=== PATIENT | female | born 1965 | race Caucasian/White ===

== ENCOUNTER → 2020-05-02 | Outpatient (CLI) | payer MEDICARE, OTHER ==
[2020-05-02 13:52] VITALS: BP 132/77; PULSE 99; TEMP 97.9; BMI 40.8
[2020-05-02 14:03] LABS: HCT 40.3 % (34.0-46.0); HGB 13.3 gm/dL (11.4-16.0); MCH 28.1 pg (25.0-35.0); Mean Platelet Volume 9.9; Platelet Count 222 k/uL (150-450); RBC 4.74 m/uL (3.80-5.40); RDW 13.3 % (11.5-15.5); WBC 8.9 k/uL (3.8-10.6)
--- NOTE | 2020-05-02 14:04 | P.HPBAR ---
Bariatric H&P - History & Physicial H&P Date: 05/02/20 History & Physicial: Visit/CC: initial clinic visit Patient initial contact: Initial weight: Initial weight in pounds: Height: 5 ft 6.5 in Initial BMI: Last weight: Current weight: 116.573 kg Current weight in pounds: 257.00 Current BMI: 40.8 [place] body weight (based on NIH guidelines): 60.101 kg Excess body weight loss: The patient is a 55 year-old F who presents for Bariatric Assessment. Patient is today for bariatric evaluation. Went to a previous seminar that I did. She is a sister of Daja Frost who had a previous sleeve gastrectomy. Patient with history of bipolar disorder, hypertension, COPD, GERD. Current tobacco user in the form of vaping. No history of DVT or dysphasia in the past. No prior EGD. Patient with history of laparoscopic hysterectomy and laparoscopic cholecystectomy. BMI 40.9. Patient remains interested in sleeve gastrectomy at this time. Review of Systems The patient denies any acute changes in vision or hearing, no dysphagia or odynophagia, no chest pain or shortness of breath, no dysuria or hematuria, no headache, no runny nose, no rectal bleeding or melena, no unexplained weight loss Past Medical History Past Medical History: No Reported History Additional Past Medical History / Comment(s): hardening of left ventricle History of Any Multi-Drug Resistant Organisms: None Reported Past Surgical History: Cholecystectomy, Hysterectomy Past Anesthesia/Blood Transfusion Reactions: No Reported Reaction Past Psychological History: Anxiety, Depression Smoking Status: Current every day smoker Past Alcohol Use History: None Reported Additional Past Alcohol Use History / Comment(s): patient vapes Past Drug Use History: None Reported Surgical - Exam Vital Signs Temp Pulse BP 97.9 F 99 132/77 05/02/20 13:49 05/02/20 13:49 05/02/20 13:49 Physical exam: General: Well-developed, well-nourished HEENT: Normocephalic, sclerae nonicteric Abdomen: Nontender, nondistended Extremities: No edema Neuro: Alert and oriented Bariatric Assessment & Plan (1) Morbid obesity Narrative/Plan: 55-year-old female interested in sleeve gastrectomy. Patient has familiarity with the procedure through her family members. Not interested in bypass. Patient will require nicotine cessation. Tentatively plan EGD in the near future unless supervised weight loss required. Await psychiatric and medical clearance. The risks of bleeding, infection, stenosis, stricture, leak, abscess , fistula formation, peritonitis, poor weight loss, reflux, vomiting, conversion to an open procedure, aborting sleeve gastrectomy, PR, PE, DVT, and were discussed. The patient understands and wishes to proceed. Status: Acute Bariatric Checklist Checklist: Plan: Checklist: EGD: 1. Hiatal hernia: 2. H. Pylori: HgbA1c: Vitamin D: Smoking: Current every day smoker Primary care physician referral: dr de leon Psychiatry clearance: Cardiology clearance: Sleep study: Diet journal: VTE risk score: VTE risk level: Rehab needs at discharge:
[2020-05-02 21:24] LABS: African American GFR (CKD) 84.6 (60.0-200.0); Albumin 4.7 g/dL (3.80-4.90); Albumin/Globulin Ratio 2.76 (1.60-3.17); Anion Gap 10.2 mmol/L (4.00-12.00); BUN/Creat Ratio 17.78 Ratio (12.00-20.00); Calcium 9.8 mg/dL (8.7-10.3); Carbon Dioxide 27.8 mmol/L (21.6-31.8); Folate, Serum 10.5 ng/mL; Globulin 1.7 g/dL (1.6-3.3); Potassium 4.3 mmol/L (3.5-5.5); Total Bilirubin 0.4 mg/dL (0.3-1.2); Total Protein 6.4 g/dL (6.2-8.2)
[2020-05-02 21:35] LABS: Hemoglobin A1C 6.2 % (4.0-6.0)
== END | disposition home or self-care (01) ==
LOC: BARWHC3 12:54
PROVIDERS: ATTEND Surgery
DX: E66.01 Morbid (severe) obesity due to excess calories (principal); F17.200 Nicotine dependence, unspecified, uncomplicated; Z68.41 Body mass index [BMI] 40.0-44.9, adult; K90.89 Other intestinal malabsorption; E55.9 Vitamin D deficiency, unspecified; Z90.49 Acquired absence of other specified parts of digestive tract; Z90.710 Acquired absence of both cervix and uterus
CPT/HCPCS: 84425; 80053; 82607; 82746; 83540; 85027; 82306; 83036; 93005; 36415; G0463; 99211

== ENCOUNTER 2020-08-06 10:36 | Day surgery (SDC) | payer MEDICARE, OTHER ==
[2020-08-01 14:53] VITALS: BMI 41.4
[~2020-08-06 10:36] MED LIST: LACTATED RINGERS 1,000 ML IV SCH
[2020-08-06 10:59] VITALS: RESP 16; TEMP 97
[2020-08-06] MEDS ORDERED: LIDOCAINE 1% INJ 10MG/ML (20 ML MDV) ONE (11:49)
[2020-08-06] MEDS ORDERED: PROPOFOL 10 MG/ML 20 ML VIAL IV ONE (11:49)
--- NOTE | 2020-08-06 11:52 | P.GSHP ---
History of Present Illness H&P Date: 08/06/20 Chief Complaint: gerd 55-year-old female known to our service. Here today for upper endoscopy. Patient being scheduled for elective sleeve gastrectomy. Complains of mild reflux. No DVT or dysphagia. 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, hardening of left ventricle History of Any Multi-Drug Resistant Organisms: None Reported Past Surgical History: Section, Cholecystectomy, Hysterectomy Additional Past Surgical History / Comment(s): D&C Past Anesthesia/Blood Transfusion Reactions: Previous Problems w/ Anesthesia Additional Past Anesthesia/Blood Transfusion Reaction / Comment(s): states had PONV with epidural for C-sec Smoking Status: Current every day smoker, Vaper Medications and Allergies Home Medications Medication Instructions Recorded Confirmed Type Albuterol Inhaler [Ventolin Hfa 2 puff INHALATION DIRECTED PRN 05/08/20 08/01/20 History Inhaler] DULoxetine HCL [Cymbalta] 60 mg PO DAILY 05/08/20 08/01/20 History Lurasidone HCl [Latuda] 60 mg PO HS 05/08/20 08/01/20 History Magnesium 250 mg PO DAILY 05/08/20 08/01/20 History OXcarbazepine [Trileptal] 600 mg PO BID 05/08/20 08/01/20 History Oxybutynin Chloride [Ditropan] 5 mg PO BID 05/08/20 08/01/20 History Pregabalin [Lyrica] 75 mg PO BID 05/08/20 08/01/20 History diphenhydrAMINE [Benadryl] 25 mg PO DIRECTED PRN 05/08/20 08/01/20 History lisinopriL [Zestril] 25 mg PO HS 05/08/20 08/01/20 History Fluticasone/Vilanterol [Breo 1 inhalation PO Q24HR 06/27/20 08/01/20 History Ellipta 100-25 Mcg Inhaler] buPROPion HCL [Wellbutrin SR] 150 mg PO Q12H 06/27/20 08/01/20 History Allergies Allergy/AdvReac Type Severity Reaction Status Date / Time adhesive tape Allergy "welts" Verified 08/06/20 10:56 alprazolam [From Xanax] Allergy crying Verified 08/06/20 10:56 codeine Allergy migraines Verified 08/06/20 10:56 hydromorphone [From Dilaudid] Allergy dropped b/p Verified 08/06/20 10:56 ibuprofen [From Motrin] Allergy Rash/Hives Verified 08/06/20 10:56 morphine Allergy Itching Verified 08/06/20 10:56 Surgical - Exam Vital Signs Temp Pulse Resp BP Pulse Ox 97 F L 88 16 158/74 97 08/06/20 10:58 08/06/20 10:58 08/06/20 10:58 08/06/20 10:58 08/06/20 10:58 Physical exam: General: Well-developed, well-nourished HEENT: Normocephalic, sclerae nonicteric Abdomen: Nontender, nondistended Extremities: No edema Neuro: Alert and oriented Assessment and Plan (1) GERD (gastroesophageal reflux disease) Narrative/Plan: Will proceed with upper endoscopy Current Visit: Yes Status: Acute Code(s): K21.9 - GASTRO-ESOPHAGEAL REFLUX DISEASE WITHOUT ESOPHAGITIS SNOMED Code(s): 285052600
--- NOTE | 2020-08-06 12:15 | P.PCN ---
Date of Procedure: 08/06/20 Procedure(s) Performed: Preoperative Dx: GERD, presurgical Postoperative Dx: Mild gastritis, mild distal esophagitis Procedure: EGD with Bx Anesthesia: Sedation Endoscopist: Dr. Bashir Specimens: Antrum, distal esophagus Endoscopic Procedure: The patient was on the endoscopy table in the left decubitus position. The Olympus gastroscope was inserted into the oropharynx and passed under direct visualization to the region of the third portion of the duodenum. From that point the scope was slowly withdrawn inspecting all surfaces carefully. There were no neoplastic inflammatory or polypoid lesions throughout the duodenum. The pylorus was widely patent. The stomach was carefully inspected. There was mild gastritis present. A biopsy of the antrum took place to rule out H. pylori. Retroflexion revealed a normal hiatus. The esophagus was then carefully examined. There was mild distal esophagitis with a small single linear erosion less than 1 cm in length. A biopsy of the esophagitis took place. The remainder the esophagus appear normal. The patient was then taken to the recovery room in stable condition per anesthesia guidelines. Recommendations: Begin antiacid therapy. Await biopsy results.
[2020-08-06 12:34] VITALS: BP 131/74; PULSE 74
== END 2020-08-06 13:00 | disposition home or self-care (01) ==
LOC: ORWHC2ENDO 10:36
PROVIDERS: ATTEND Surgery
DX: K29.50 Unspecified chronic gastritis without bleeding (principal); K21.0 Gastro-esophageal reflux disease with esophagitis; K22.10 Ulcer of esophagus without bleeding; R89.7 Abnormal histological findings in specimens from other organs, systems and tissues; K22.8 Other specified diseases of esophagus; J44.9 Chronic obstructive pulmonary disease, unspecified; I42.8 Other cardiomyopathies; F17.210 Nicotine dependence, cigarettes, uncomplicated; F17.290 Nicotine dependence, other tobacco product, uncomplicated; G40.A09 Absence epileptic syndrome, not intractable, without status epilepticus; G40.409 Other generalized epilepsy and epileptic syndromes, not intractable, without status epilepticus; K08.109 Complete loss of teeth, unspecified cause, unspecified class; E66.9 Obesity, unspecified; Z98.890 Other specified postprocedural states; Z90.49 Acquired absence of other specified parts of digestive tract; Z90.710 Acquired absence of both cervix and uterus; Z91.89 Other specified personal risk factors, not elsewhere classified; Z79.899 Other long term (current) drug therapy; Z79.51 Long term (current) use of inhaled steroids; Z91.09 Other allergy status, other than to drugs and biological substances; Z88.8 Allergy status to other drugs, medicaments and biological substances; Z88.5 Allergy status to narcotic agent; Z88.6 Allergy status to analgesic agent; Z68.39 Body mass index [BMI] 39.0-39.9, adult
CPT/HCPCS: 88305; 88312; 43239; J2001; J2704

== ENCOUNTER → 2020-08-27 | Outpatient (CLI) | payer MEDICARE, OTHER ==
[2020-08-27 13:59] VITALS: BP 149/84; PULSE 74; RESP 16; TEMP 98.3; BMI 39.7
--- NOTE | 2020-08-27 16:04 | P.BASOAP ---
Subjective Progress Note Date: 08/27/20 Principal diagnosis: Morbid obesity 55-year-old female known to our service. Underwent recent upper endoscopy preoperatively for upcoming sleeve gastrectomy. The patient was found to have gastritis and esophagitis. Esophageal biopsies showed ulceration with yeast. She is in the midst of a two-week Diflucan course orally. No new complaints. Patient is taking antacids daily as well. Patient still working on smoking cessation. He has her appointment with psychiatry October 01. Patient states she does need a colonoscopy at some point per her primary care physician. No bowel related complaints. Objective - Vital Signs Vital signs: Vital Signs Temp 98.3 F 08/27/20 13:56 Pulse 74 08/27/20 13:56 Resp 16 08/27/20 13:56 BP 149/84 08/27/20 13:56 Pulse Ox Intake & Output 08/26/20 08/27/20 08/27/20 18:59 06:59 18:59 Weight 113.398 kg - Exam Abdomen: Soft, nondistended, nontender Assessment/Plan (1) Morbid obesity Narrative/Plan: Patient overall doing well. Continue antiacid therapy. Finish antifungal therapy. Surgical consent form for upcoming sleeve gastrectomy reviewed in detail. All questions answered. Continue to work on smoking cessation. Likely won't be scheduled for sleeve gastrectomy until early 2020. Plan: Date: 08/27/20 Initial Weight: 113.398 kg Initial BMI: 39.7 Current Weight: 113.398 kg Current BMI: 39.7 Type of Surgery: Total Volume in Band: Previous Volume: Volume Removed: Volume Added: Band Size:
== END | disposition home or self-care (01) ==
LOC: BARWHC3 12:00
PROVIDERS: ATTEND Surgery
DX: E66.01 Morbid (severe) obesity due to excess calories (principal); Z68.39 Body mass index [BMI] 39.0-39.9, adult
CPT/HCPCS: 99211

== ENCOUNTER → 2020-11-25 | Outpatient (CLI) | payer MEDICARE, OTHER ==
--- NOTE | 2020-11-26 15:00 | MM ---
Reason for exam: screening (asymptomatic). Last mammogram was performed 7 years and 6 months ago. History: Family history of breast cancer in cousin. Physical Findings: A clinical breast exam by your physician is recommended on an annual basis and results should be correlated with mammographic findings. MG 3D Screening Mammo W/Cad Bilateral CC and MLO view(s) were taken. There are scattered fibroglandular densities. There is no discrete abnormality. ASSESSMENT: Negative, BI-RAD 1 RECOMMENDATION: Routine screening mammogram of both breasts in 1 year.
== END | disposition home or self-care (01) ==
LOC: RADMAMWWP 09:48
PROVIDERS: ATTEND Family Medicine
DX: Z12.31 Encounter for screening mammogram for malignant neoplasm of breast (principal)
CPT/HCPCS: 77063; 77067

== ENCOUNTER 2020-12-17 09:10 | Day surgery (SDC) | payer MEDICARE, OTHER ==
[2020-12-12 14:22] VITALS: BMI 40.1
[~2020-12-17 09:10] MED LIST changes: +LIDOCAINE 1% (10MG/ML) FOR IV START INTRADERMA PRN
[2020-12-17] MEDS ORDERED: LACTATED RINGERS 1,000 ML IV ONE ×2 (09:40)
[2020-12-17 09:58] VITALS: RESP 16; TEMP 97
[2020-12-17] MEDS ORDERED: PROPOFOL 10 MG/ML 20 ML VIAL IV ONE (10:32)
--- NOTE | 2020-12-17 10:37 | P.GSHP ---
History of Present Illness H&P Date: 12/17/20 Chief Complaint: Screening 85-year-old female with history of colon polyps here today for screening colonoscopy. Last colonoscopy 6-7 years ago. Family history of colon cancer in grandfather. No bowel complaints. 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, hardening of left ventricle History of Any Multi-Drug Resistant Organisms: None Reported Past Surgical History: Section, Cholecystectomy, Hysterectomy Additional Past Surgical History / Comment(s): D&C Past Anesthesia/Blood Transfusion Reactions: Previous Problems w/ Anesthesia, Postoperative Nausea & Vomiting (PONV) Additional Past Anesthesia/Blood Transfusion Reaction / Comment(s): states had PONV with epidural for C-sec Smoking Status: Current every day smoker Medications and Allergies Home Medications Medication Instructions Recorded Confirmed Type Albuterol Inhaler [Ventolin Hfa 2 puff INHALATION DIRECTED PRN 05/08/20 12/17/20 History Inhaler] DULoxetine HCL [Cymbalta] 60 mg PO DAILY 05/08/20 12/17/20 History Lurasidone HCl [Latuda] 60 mg PO HS 05/08/20 12/17/20 History Magnesium 250 mg PO DAILY 05/08/20 12/17/20 History OXcarbazepine [Trileptal] 600 mg PO BID 05/08/20 12/17/20 History Oxybutynin Chloride [Ditropan] 5 mg PO BID 05/08/20 12/17/20 History diphenhydrAMINE [Benadryl] 25 mg PO DIRECTED PRN 05/08/20 12/17/20 History lisinopriL [Zestril] 25 mg PO HS 05/08/20 12/17/20 History Fluticasone/Vilanterol [Breo 1 inhalation PO Q24HR 06/27/20 12/17/20 History Ellipta 100-25 Mcg Inhaler] buPROPion HCL [Wellbutrin SR] 150 mg PO Q12H 06/27/20 12/17/20 History Omeprazole [PriLOSEC] 20 mg PO AC-BRKFST #90 cap 08/06/20 12/17/20 Rx Allergies Allergy/AdvReac Type Severity Reaction Status Date / Time adhesive tape Allergy "welts" Verified 12/17/20 09:47 alprazolam [From Xanax] Allergy crying Verified 12/17/20 09:47 codeine Allergy migraines Verified 12/17/20 09:47 hydromorphone [From Dilaudid] Allergy dropped b/p Verified 12/17/20 09:47 ibuprofen [From Motrin] Allergy Rash/Hives Verified 12/17/20 09:47 morphine Allergy Itching Verified 12/17/20 09:47 Surgical - Exam Vital Signs Temp Pulse Resp BP Pulse Ox 97.0 F L 89 16 133/69 95 12/17/20 09:45 12/17/20 09:45 12/17/20 09:45 12/17/20 09:45 12/17/20 09:45 Physical exam: General: Well-developed, well-nourished HEENT: Normocephalic, sclerae nonicteric Abdomen: Nontender, nondistended Extremities: No edema Neuro: Alert and oriented Assessment and Plan (1) Colon cancer screening Narrative/Plan: Proceed with colonoscopy. Current Visit: Yes Status: Acute Code(s): Z12.11 - ENCOUNTER FOR SCREENING FOR MALIGNANT NEOPLASM OF COLON SNOMED Code(s): 604499118
--- NOTE | 2020-12-17 10:59 | P.PCN ---
Date of Procedure: 12/17/20 Procedure(s) Performed: PREOPERATIVE DIAGNOSIS: Colon cancer screening POSTOPERATIVE DIAGNOSIS: Hepatic flexure polyp, poor prep PROCEDURE: Colonoscopy with snare polypectomy ANESTHESIA: MAC SURGEON: Shahriar Bashir M.D. SPECIMENS: Polyp ENDOSCOPIC PROCEDURE: The patient was placed on the endoscopy table in the left decubitus position. The Olympus colonoscope was inserted into the anus and passed under direct visualization to the base of the cecum. The appendiceal orifice was visualized. From that point the scope was slowly withdrawn inspecting all surfaces carefully. There were no neoplastic inflammatory or polypoid lesions throughout the cecum and ascending colon. At the hepatic flexure a 1 cm to 1.5 cm sessile polyp was removed as one piece. It was too large to retrieve through the scope so we cut the polyp into several pieces with the snare in order to retrieve. The remainder of the transverse descending sigmoid and rectum appeared normal. It should be noted the patient's prep was suboptimal. There was no visible diverticulosis. Digital rectal examination was normal. The patient was taken to the recovery room in stable condition per anesthesia guidelines. RECOMMENDATIONS: Await biopsy results. Will recommend follow-up colonoscopy one year.
[2020-12-17 11:40] VITALS: BP 124/74; PULSE 72
== END 2020-12-17 11:43 | disposition home or self-care (01) ==
LOC: ORWHC2ENDO 09:10
PROVIDERS: ATTEND Surgery
DX: Z12.11 Encounter for screening for malignant neoplasm of colon (principal); D12.3 Benign neoplasm of transverse colon; Z80.0 Family history of malignant neoplasm of digestive organs; J44.9 Chronic obstructive pulmonary disease, unspecified; G40.909 Epilepsy, unspecified, not intractable, without status epilepticus; F17.200 Nicotine dependence, unspecified, uncomplicated; Z98.891 History of uterine scar from previous surgery; Z90.49 Acquired absence of other specified parts of digestive tract; Z90.710 Acquired absence of both cervix and uterus; Z79.51 Long term (current) use of inhaled steroids; Z79.899 Other long term (current) drug therapy; Z88.5 Allergy status to narcotic agent; Z88.6 Allergy status to analgesic agent; Z91.048 Other nonmedicinal substance allergy status
CPT/HCPCS: 88305; 45385; J2704

== ENCOUNTER → 2020-12-30 | Outpatient (CLI) | payer MEDICARE, OTHER ==
[2020-12-30 14:30] VITALS: BMI 40.4
== END | disposition home or self-care (01) ==
LOC: BARWHC3 08:52
PROVIDERS: ATTEND Surgery
DX: E66.01 Morbid (severe) obesity due to excess calories (principal); Z71.3 Dietary counseling and surveillance; Z68.41 Body mass index [BMI] 40.0-44.9, adult
CPT/HCPCS: 97804

== ENCOUNTER → 2021-01-28 | Outpatient (CLI) | payer MEDICARE, OTHER ==
[2021-01-28 13:07] VITALS: BP 135/82; PULSE 84; RESP 16; TEMP 98.3; BMI 39.2
--- NOTE | 2021-01-28 15:05 | P.BASOAP ---
Subjective Progress Note Date: 01/28/21 Principal diagnosis: Morbid obesity Patient returns for evaluation. Last seen in November. Underwent colonoscopy at that time. Last EGD July of last year. Esophagitis with [place] was seen. She was treated with antifungals at that time. Apparently she missed one of her months of supervised weight loss and had to restart. She will not be ready for surgery till June or later. Still smoking 5-6 cigarettes per day. Objective - Vital Signs Vital signs: Vital Signs Temp 98.3 F 01/28/21 13:03 Pulse 84 01/28/21 13:03 Resp 16 01/28/21 13:03 BP 135/82 01/28/21 13:03 Pulse Ox Intake & Output 01/27/21 01/28/21 01/28/21 18:59 06:59 18:59 Weight 112.037 kg - Exam Abdomen: Soft, nontender, nondistended Assessment/Plan (1) Morbid obesity Narrative/Plan: 55-year-old female with obesity. Continue preoperative weight loss regimen. Continue attempts at smoking cessation. Follow-up this fall. Plan: Date: 01/28/21 Initial Weight: 113.398 kg Initial BMI: 39.7 Current Weight: 112.037 kg Current BMI: 39.2 Type of Surgery: Total Volume in Band: Previous Volume: Volume Removed: Volume Added: Band Size:
== END ==
LOC: BARWHC3 12:34
PROVIDERS: ATTEND Surgery
DX: E66.01 Morbid (severe) obesity due to excess calories (principal); Z68.39 Body mass index [BMI] 39.0-39.9, adult; F17.210 Nicotine dependence, cigarettes, uncomplicated
CPT/HCPCS: 99211

== ENCOUNTER → 2021-07-15 | Outpatient (CLI) | payer MEDICARE, OTHER ==
[2021-07-15 13:18] VITALS: BP 132/84; PULSE 80; RESP 18; TEMP 98.4; BMI 38.8
--- NOTE | 2021-07-15 13:54 | P.BASOAP ---
Subjective Progress Note Date: 07/15/21 Principal diagnosis: Morbid obesity Patient returns for recheck. Last seen in January of this year. Patient remains interested in proceeding with sleeve gastrectomy. Unfortunately she is still smoking at this time. Recently started Adipex without significant weight loss. She has completed her supervised weight loss visits. Recently found a small nodule in the submental region. Nontender. Has an appointment with ENT. Objective - Vital Signs Vital signs: Vital Signs Temp 98.4 F 07/15/21 13:14 Pulse 80 07/15/21 13:14 Resp 18 07/15/21 13:14 BP 132/84 07/15/21 13:14 Pulse Ox Intake & Output 07/14/21 07/15/21 07/15/21 18:59 06:59 18:59 Weight 110.767 kg - Exam Abdomen: Soft, nontender, nondistended Submental swelling 2 x 1.5 cm Assessment/Plan (1) Morbid obesity Narrative/Plan: Patient continues to smoke. Says she is continuing to try to quit. We'll have patient return in 2-3 months for recheck. We'll not schedule sleep gastrectomy until smoking cessation confirmed. Await ENT evaluation. Plan: Date: 07/15/21 Initial Weight: 113.398 kg Initial BMI: 39.7 Current Weight: 110.767 kg Current BMI: 38.8 Type of Surgery: Total Volume in Band: Previous Volume: Volume Removed: Volume Added: Band Size:
== END ==
LOC: BARWHC3 12:48
PROVIDERS: ATTEND Surgery
DX: E66.01 Morbid (severe) obesity due to excess calories (principal); F17.200 Nicotine dependence, unspecified, uncomplicated; Z68.39 Body mass index [BMI] 39.0-39.9, adult; Z88.5 Allergy status to narcotic agent; Z88.6 Allergy status to analgesic agent; Z91.048 Other nonmedicinal substance allergy status; Z88.8 Allergy status to other drugs, medicaments and biological substances
CPT/HCPCS: 99211

== ENCOUNTER → 2021-09-30 | Outpatient (CLI) | payer MEDICARE, OTHER ==
--- NOTE | 2021-09-30 14:08 | P.BASOAP ---
Subjective Progress Note Date: 09/30/21 Principal diagnosis: Morbid obesity Patient returns for evaluation. She says she have the nodule excised from beneath her chin. She states this was benign. Otherwise doing well. No abdominal pain. Says she still is smoking. Says she will not stop smoking until she has a better idea when surgery will be scheduled. Objective - Exam Abdomen: Soft, nontender, nondistended Chin with recent 3 cm incision with sutures present Assessment/Plan (1) Morbid obesity Narrative/Plan: Patient doing well at this time. Thankfully recent biopsy from ENT was negative. Patient informed that we will not schedule surgery until we have a negative nicotine test. She says she will quit today. Tentatively plan on the patient return in 4-6 weeks to have urine sampling for nicotine. Plan: Date: Initial Weight: 113.398 kg Initial BMI: Current Weight: Current BMI: Type of Surgery: Total Volume in Band: Previous Volume: Volume Removed: Volume Added: Band Size:
[2021-09-30 14:36] VITALS: BP 139/76; PULSE 112; TEMP 98; BMI 38.1
== END ==
LOC: BARWHC3 13:38
PROVIDERS: ATTEND Surgery
DX: E66.01 Morbid (severe) obesity due to excess calories (principal); F17.200 Nicotine dependence, unspecified, uncomplicated; Z68.38 Body mass index [BMI] 38.0-38.9, adult; Z91.048 Other nonmedicinal substance allergy status; Z88.5 Allergy status to narcotic agent; Z88.6 Allergy status to analgesic agent
CPT/HCPCS: 99211

== ENCOUNTER → 2022-05-20 | Outpatient (CLI) | payer MEDICARE, OTHER ==
--- NOTE | 2022-05-20 16:41 | P.SLEEP ---
History of Present Illness DATE: 05/20/2022 52 CONSULTATION/NEW PATIENT EVALUATION HISTORY OF PRESENT ILLNESS/SLEEP-WAKE EVALUATION: 57 year old lady had been evaluated in the sleep center for possible obstructive sleep apnea hypopnea syndrome. SLEEP SCHEDULE: Usually sleep schedule from midnight until 10 AM[]. FALLING ASLEEP: Patient has problems with the falling asleep, this TV set in bedroom DURING SLEEP: Usually patient sleeps on the side position with a loud snoring and multiple awakenings from sleep up to 3 times with episodes of nocturia. No history of hypnogogical hallucinations, sleep paralysis, or cataplexy. DURING THE DAY/WAKE STATE: Patient has problems with the pain could tension, episodes of depression and anxiety falling asleep during the day. [place] sleepiness scale is 16, which is significantly above normal indicates sleepiness. Patient may take nap around 1- 2 PM. MEDICATIONS: Trileptal, oxybutynin, lisinopril, latuda, Cymbalta, vitamin D. PAST MEDICAL HISTORY: Sinuses problems, headaches, acid reflux, major depression, history of psychosis, restless leg symptoms. PAST SURGICAL HISTORY: Total hysterectomy, cholecystectomy, D&C. SOCIAL HISTORY: Positive for smoking for 40 years 1 pack a day quit 3 months ago, alcohol consumption none. FAMILY HISTORY: Stroke, epilepsy, hyperlipidemia. REVIEW OF SYSTEMS: Loud snoring, multiple awakenings from sleep. No fevers. No double vision. No recent chest pain. No shortness of breath. No abdominal pain. No bleeding episodes. No blood in urine. No seizure episodes. PHYSICAL EXAMINATION: GENERAL: A pleasant patient without any distress. VITAL SIGNS: BP 141/80 , HR XT 7 , RR 20 , weight 251 pounds , height 5 foot 6 inches body mass index 40.3 . HEENT: PERRLA, EOMI. Evaluation of oropharynx showed tongue protrudes midline, low position of soft palate Mallampati 3, whide pillrs.. NECK: Supple. No JVD. Thyroid is not palpable. LUNGS: Clear to percussion and to auscultation. Good air exchange. No wheezing or rhonchi. HEART: S1, S2 regular. No murmurs, gallops or rubs. ABDOMEN: Soft and nontender. Bowel sounds are present. No organomegaly appr eciated. EXTREMITIES: No clubbing or cyanosis. ADMISSIONS SPECIALIST: Awake, alert, and oriented x3. Cranial nerves 2 to 7 intact. There is no fasciculation or atrophy noted. No focal deficits observed. ASSESSMENT: 1. Loud snoring, multiple awakenings from sleep, small oropharyngeal air space. Sleepiness [place] sleepiness scale 16. White neck 17 inches in circumference. Obstructive sleep apnea hypopnea syndrome. 2. History of sinusitis. 3 headaches. 4. Acid reflux. 5 history of major depression and psychosis. 6. Restless leg symptoms. 7. Status post total hysterectomy. 8. Status post cholecystectomy. 9. Status post D and C. PLAN: 1. Polysomnography for evaluation of patient's breathing during sleep. 2. CPAP/BiPAP titration if sleep study confirms obstructive sleep apnea- hypopnea syndrome. 3. Preferable position during sleep on the side. 4. No driving if patient feels any sleepiness. Patient is aware of civil and criminal liability for unsafe driving. 5. Sleep hygiene with regular sleep time for at least 7.5-8 hours. 6. Watching weight. Sincerely, Yeyo Ken MD, PhD, FAASM. 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, hardening of left ventricle History of Any Multi-Drug Resistant Organisms: None Reported Past Surgical History: Section, Cholecystectomy, Hysterectomy Additional Past Surgical History / Comment(s): D&C Past Anesthesia/Blood Transfusion Reactions: Previous Problems w/ Anesthesia Additional Past Anesthesia/Blood Transfusion Reaction / Comment(s): states had PONV with epidural for C-sec Past Psychological History: Anxiety, Depression Smoking Status: Current every day smoker, Vaper Past Alcohol Use History: None Reported Additional Past Alcohol Use History / Comment(s): currently smoking 5 cigarettes daily, down from 1 to 1 and 1/2ppd. started age 15, also vaping Past Drug Use History: None Reported Medications and Allergies Home Medications Medication Instructions Recorded Confirmed Type Albuterol Inhaler [Ventolin Hfa 2 puff INHALATION DIRECTED PRN 05/08/20 02/25/22 History Inhaler] DULoxetine HCL [Cymbalta] 60 mg PO DAILY 05/08/20 02/25/22 History Lurasidone HCl [Latuda] 60 mg PO HS 05/08/20 02/25/22 History Magnesium 250 mg PO DAILY 05/08/20 02/25/22 History OXcarbazepine [Trileptal] 600 mg PO BID 05/08/20 02/25/22 History Oxybutynin Chloride [Ditropan] 5 mg PO BID 05/08/20 02/25/22 History diphenhydrAMINE [Benadryl] 25 mg PO DIRECTED PRN 05/08/20 02/25/22 History lisinopriL [Zestril] 25 mg PO HS 05/08/20 02/25/22 History Fluticasone/Vilanterol [Breo 1 inhalation PO Q24HR 06/27/20 02/25/22 History Ellipta 100-25 Mcg Inhaler] buPROPion HCL [Wellbutrin SR] 150 mg PO Q12H 06/27/20 02/25/22 History Omeprazole [PriLOSEC] 20 mg PO AC-BRKFST #90 cap 08/06/20 02/25/22 Rx Phentermine HCl [Adipex-P] 37.5 mg PO BID 07/15/21 02/25/22 History Sulfamethox-Tmp 800-160Mg [Bactrim 1 tab PO Q12HR 07/15/21 02/25/22 History DS 800-160 mg] Allergies Allergy/AdvReac Type Severity Reaction Status Date / Time adhesive tape Allergy "welts" Verified 07/15/21 13:12 alprazolam [From Xanax] Allergy crying Verified 07/15/21 13:12 codeine Allergy migraines Verified 07/15/21 13:12 hydromorphone [From Dilaudid] Allergy dropped b/p Verified 07/15/21 13:12 ibuprofen [From Motrin] Allergy Rash/Hives Verified 07/15/21 13:12 morphine Allergy Itching Verified 07/15/21 13:12 Sleep Note - Sleep Note Sleep Note: Temperature: Pulse Rate: Respiratory Rate: Blood Pressure: SpO2: Height: Weight: BMI: Neck Circumference:
== END ==
LOC: SLEEP 15:18
PROVIDERS: ATTEND Internal Medicine
DX: G47.33 Obstructive sleep apnea (adult) (pediatric) (principal); K21.9 Gastro-esophageal reflux disease without esophagitis; G25.81 Restless legs syndrome; Z90.710 Acquired absence of both cervix and uterus; F32.A Depression, unspecified; Z90.49 Acquired absence of other specified parts of digestive tract; Z87.59 Personal history of other complications of pregnancy, childbirth and the puerperium; Z87.09 Personal history of other diseases of the respiratory system; Z86.59 Personal history of other mental and behavioral disorders; Z79.899 Other long term (current) drug therapy; Z91.048 Other nonmedicinal substance allergy status; Z88.5 Allergy status to narcotic agent; Z88.6 Allergy status to analgesic agent; Z88.8 Allergy status to other drugs, medicaments and biological substances; F17.200 Nicotine dependence, unspecified, uncomplicated
CPT/HCPCS: 99211

== ENCOUNTER → 2022-07-20 | Outpatient (CLI) | payer MEDICARE, OTHER ==
[2022-07-20 10:45] VITALS: BMI 40.8
== END ==
LOC: BARWHC3 08:32
PROVIDERS: ATTEND Surgery
DX: E66.01 Morbid (severe) obesity due to excess calories (principal); Z71.3 Dietary counseling and surveillance; Z68.41 Body mass index [BMI] 40.0-44.9, adult; Z91.048 Other nonmedicinal substance allergy status; Z88.5 Allergy status to narcotic agent; Z88.6 Allergy status to analgesic agent; F17.200 Nicotine dependence, unspecified, uncomplicated
CPT/HCPCS: 97804

== ENCOUNTER → 2022-10-13 | Outpatient (CLI) | payer MEDICARE, OTHER ==
[2022-10-13 18:29] LABS: Basophils # (A) 0.06 X 10*3/uL (0.00-0.10); Basophils % (A) 0.8 %; Eosinophils # (A) 0.21 X 10*3/uL (0.04-0.35); Eosinophils % (A) 2.8 %; HCT 41.7 % (37.2-46.3); HGB 13.7 g/dL (12.0-15.0); Immature Grans, Automated 0.5 %; Lymphocytes # (A) 1.61 X 10*3/uL (0.90-5.00); Lymphocytes % (A) 21.4 %; MCH 27.4 pg (27.0-32.0); MCHC 32.9 g/dL (32.0-37.0); MCV 83.4 fL (80.0-97.0); Mean Platelet Volume 12.2 fL (9.5-12.2); Monocytes # (A) 0.54 X 10*3/uL (0.20-1.00); Monocytes % (A) 7.2 %; NRBC Per 100 WBC 0 /100 WBCS (0.0-0.0); Neutrophils # (A) 5.06 X 10*3/uL (1.80-7.70); Neutrophils % (A) 67.3 %; Platelet Count 227 X 10*3/uL (140-440); RDW 13.9 % (11.5-14.5); WBC 7.52 X 10*3/uL (4.50-10.00)
[2022-10-13 19:47] LABS: African American GFR (CKD) 96.2 (60.0-200.0); Albumin 4.7 g/dL (3.8-4.9); Albumin/Globulin Ratio 2.61 (1.60-3.17); Anion Gap 15.4 mmol/L (10.00-18.00); BUN/Creat Ratio 18.5 Ratio (12.00-20.00); Blood Urea Nitrogen 14.8 mg/dL (9.0-27.0); Calcium 10.2 mg/dL (8.7-10.3); Carbon Dioxide 22.6 mmol/L (20.0-27.5); Globulin 1.8 g/dL (1.6-3.3); Potassium 4.5 mmol/L (3.5-5.5); Total Bilirubin 0.4 mg/dL (0.30-1.20); Total Protein 6.5 g/dL (6.2-8.2)
== END | disposition home or self-care (01) ==
LOC: LABPAT 12:59
PROVIDERS: ATTEND Surgery
DX: Z01.812 Encounter for preprocedural laboratory examination (principal)
CPT/HCPCS: 80053; 85025; 93005

== ENCOUNTER → 2022-10-14 | Outpatient (CLI) | payer MEDICARE, OTHER | END | disposition home or self-care (01) | LOC: LABPAT 10:40 | PROVIDERS: ATTEND Surgery | DX: Z01.812 Encounter for preprocedural laboratory examination (principal) | CPT/HCPCS: 93005 ==

== ENCOUNTER 2022-10-23 07:30 | Inpatient (IN) | payer MEDICARE, OTHER ==
[~2022-10-23 07:30] MED LIST changes: +ACETAMINOPHEN TAB 500 MG TAB PO PRN; +ENOXAPARIN 40 MG/0.4 ML SYRINGE SQ PRN; -LACTATED RINGERS 1,000 ML IV SCH; -LIDOCAINE 1% (10MG/ML) FOR IV START INTRADERMA PRN; +ONDANSETRON 4 MG/2 ML VIAL IVP PRN; +fentaNYL (PF) 50 MCG/ML 2 ML AMP IVP PRN
--- NOTE | 2022-10-23 09:54 | P.GSHP ---
History of Present Illness H&P Date: 10/23/22 Chief Complaint: Morbid obesity 57-year-old female here today for elective laparoscopic sleeve gastrectomy. Patient has been followed in the bariatric clinic since 2019. Patient has family members of had a previous sleeve gastrectomy. Patient with history of hypertension, COPD, GERD, possible sleep apnea. Patient was a previous smoker. She did stop during this preoperative evaluation. Previous EGD showed mild gastritis and mild distal esophagitis. No history of DVT or dysphagia. 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, hardening of left ventricle, having retest for sleep apnea soon History of Any Multi-Drug Resistant Organisms: None Reported Past Surgical History: Section, Cholecystectomy, Hysterectomy Additional Past Surgical History / Comment(s): D&C Past Anesthesia/Blood Transfusion Reactions: Previous Problems w/ Anesthesia, Postoperative Nausea & Vomiting (PONV) Additional Past Anesthesia/Blood Transfusion Reaction / Comment(s): states had PONV with epidural for C-sec Smoking Status: Current every day smoker, Former smoker - Past Family History Father Family Medical History: AFIB, Diabetes Mellitus Mother Family Medical History: CVA/TIA, Diabetes Mellitus, Renal Disease Additional Family Medical History / Comment(s): dialysis Medications and Allergies Home Medications Medication Instructions Recorded Confirmed Type Albuterol Inhaler [Ventolin Hfa 2 puff INHALATION DIRECTED PRN 05/08/20 10/19/22 History Inhaler] DULoxetine HCL [Cymbalta] 60 mg PO DAILY 05/08/20 10/19/22 History Lurasidone HCl [Latuda] 60 mg PO HS 05/08/20 10/19/22 History OXcarbazepine [Trileptal] 600 mg PO BID 05/08/20 10/19/22 History Oxybutynin Chloride [Ditropan] 5 mg PO TID 05/08/20 10/19/22 History diphenhydrAMINE [Benadryl] 25 mg PO DIRECTED PRN 05/08/20 10/19/22 History lisinopriL [Zestril] 25 mg PO HS 05/08/20 10/19/22 History Fluticasone/Vilanterol [Breo 1 inhalation PO Q24HR 06/27/20 10/19/22 History Ellipta 100-25 Mcg Inhaler] buPROPion HCL [Wellbutrin SR] 150 mg PO BID 06/27/20 10/19/22 History Omeprazole [PriLOSEC] 20 mg PO AC-BRKFST #90 cap 08/06/20 10/19/22 Rx Aspirin [Adult Low Dose Aspirin EC] 81 mg PO DAILY 10/19/22 10/19/22 History Ergocalciferol [Vitamin D2 (1250 1 tab PO WEEKLY 10/19/22 10/19/22 History Mcg = 12463 Iu)] Famotidine 40 mg PO DAILY 10/19/22 10/19/22 History Meclizine [Antivert] 25 mg PO BID 10/19/22 10/19/22 History Allergies Allergy/AdvReac Type Severity Reaction Status Date / Time adhesive tape Allergy "welts" Verified 10/19/22 09:28 alprazolam [From Xanax] Allergy crying Verified 10/19/22 09:28 codeine Allergy migraines Verified 10/19/22 09:28 hydromorphone [From Dilaudid] Allergy dropped b/p Verified 10/19/22 09:28 ibuprofen [From Motrin] Allergy Rash/Hives Verified 10/19/22 09:28 morphine Allergy Itching Verified 10/19/22 09:28 Surgical - Exam Physical exam: General: Well-developed, well-nourished HEENT: Normocephalic, sclerae nonicteric Abdomen: Nontender, nondistended Extremities: No edema Neuro: Alert and oriented Assessment and Plan (1) Morbid obesity Narrative/Plan: 57-year-old female with morbid obesity. We'll proceed with laparoscopic da Radha assisted sleeve gastrectomy. The risks of bleeding, infection, stenosis, stricture, leak, abscess, fistula formation, peritonitis, poor weight loss, reflux, vomiting, conversion to an open procedure, aborting sleeve gastrectomy, CA, PE, DVT, and were discussed. The patient understands and wishes to proceed. Status: Acute Code(s): E66.01 - MORBID (SEVERE) OBESITY DUE TO EXCESS CALORIES SNOMED Code(s): 315508481
[2022-10-23] MEDS ORDERED: CHLORHEXIDINE GLUCONATE 15 ML CUP MUCOUS MEM ONE ×2 (12:11→12:21)
[2022-10-23 12:44] LABS: Glucose,Whole Blood 101 mg/dL (70-110)
[2022-10-23] MEDS: LACTATED RINGERS 1,000 ML IV SCH (13:01)
[2022-10-23] MEDS ORDERED: GLYCOPYRROLATE 0.2 MG/ML 2 ML VIAL ONE (13:41)
[2022-10-23] MEDS ORDERED: SUCCINYLCHOLINE CHLORIDE 200 MG/10 ML VIAL IV ONE (13:41)
[2022-10-23] MEDS ORDERED: PROPOFOL 10 MG/ML 20 ML VIAL IV ONE (13:41)
[2022-10-23] MEDS ORDERED: NEOSTIGMINE 1 MG/ML 10 ML VIAL ONE (13:41)
[2022-10-23] MEDS ORDERED: LIDOCAINE 2% INJ 20 MG/ML (2 ML VIAL) ONE (13:41)
[2022-10-23] MEDS ORDERED: MIDAZOLAM 2 MG/2 ML VIAL ONE (13:41)
[2022-10-23] MEDS ORDERED: ROCURONIUM 10 MG/ML (5 ML VIAL) IV ONE (13:41)
[2022-10-23] MEDS ORDERED: METHYLENE BLUE 10 MG/ML (10 ML VIAL) ONE (13:41)
[2022-10-23] MEDS ORDERED: fentaNYL (PF) 50 MCG/ML 2 ML AMP ONE (13:41)
[2022-10-23] MEDS ORDERED: BUPIVACAIN-EPI 0.25%-1:200,000 30 ML VIAL SQ ONE (14:06)
[2022-10-23] MEDS ORDERED: LACTATED RINGERS 1,000 ML IV ONE ×2 (15:15→15:24)
[2022-10-23] MEDS ORDERED: diphenhydrAMINE 50 MG/ML 1 ML VIAL IVP PRN (15:55)
[2022-10-23] MEDS ORDERED: SIMETHICONE 40 MG/0.6 ML DROPS 2,000 MG/30 ML BOTTLE PO PRN (15:55)
[2022-10-23] MEDS ORDERED: HYOSCYAMINE ORAL DROPS 1.875 MG/15 ML BOTTLE PO PRN (15:55)
[2022-10-23] MEDS ORDERED: ONDANSETRON 4 MG/2 ML VIAL IVP PRN (15:55)
[2022-10-23] MEDS ORDERED: NALOXONE 0.4 MG/ML 1 ML VIAL IV PRN ×2 (15:55→22:27)
--- NOTE | 2022-10-23 16:01 | P.OP ---
Date of Procedure: 10/23/22 Procedure(s) Performed: PREOPERATIVE DIAGNOSIS: Morbid obesity, hypertension POSTOPERATIVE DIAGNOSIS: Same PROCEDURE: Da Radha assisted laparoscopic sleeve gastrectomy SURGEON: Mckay EBL: Minimal ANESTHESIA: General COMPLICATIONS: None OPERATIVE PROCEDURE: Patient was placed in the operating table in the supine position. The patient was then placed under general anesthesia at that time. The abdomen was prepped and draped in the usual sterile fashion. A 5 mm optical trocar was placed in the left upper quadrant 20 cm inferior to the xiphoid process. Insufflation took place up to 15 mmHg. No adhesions were seen. A 5 mm subxiphoid incision was made and the medium Julien retractor was used to e levate the left lobe of liver anteriorly. This was held in place using the fixed arm retractor. An additional 12 mm trocar was placed in the right paramedian location and 2 additional 8 mm trochars were placed in the left upper quadrant one medial and one lateral to the initially placed optical trocar. All of these trochars were placed along the same plane. The initial 5 was then switched to an 8 mm trocar. The robot was then docked appropriately. The 8 mm camera was placed in the left paramedian trocar site down viewing. A fenestrated bipolar was placed in arm 1, arm 3 had the vessel sealer, arm 4 had the small grasper retractor. The patient's liver was somewhat enlarged. During the procedure at times we had to manually hold up on our liver retractor in order to see the diaphragm. The hiatus was inspected and there was no visible hiatal hernia. At that point I moved to the distal aspect of the greater curvature the stomach. The short gastric vasculature were divided using the vessel sealer. This dissection took place distally until we were 4 cm from the pylorus. The posterior adhesions were divided as well. The dissection then took place proximally along the stomach until the posterior short gastrics were divided and the fundus of the stomach was fully mobilized. Once the stomach was fully mobilized the blunt tipped 40-Khmer bougie dilator was advanced into the stomach and advanced all the way to the prepyloric location. The patient's stomach by palpation seemed to be of average thickness. Sequential firing of the stapler took place. 2 green loads, 4 blue loads, and a single white load were utilized. No buttressing was used. The stomach was then placed in the right upper quadrant after it was fully excised. The oral gastric tube was reinserted. The stomach was insufflated with approximately 100 mL of methylene blue. The patient was noted to have some oozing at a few sites along the sleeve. These were all controlled using both bipolar cautery and the 5 mm clipper. No further bleeding was seen. Tisseel fibrin glue was then used along the length of the staple line. The robot was then undocked. The da Radha laparoscope was used and the stomach was removed from the 12 mm trocar site without difficulty. The fascia at the 12mm site was closed using [id number] 0 Vicryl sutures with the laparoscopic suture passer and Sumit Winsome technique. The insufflation was evacuated. The skin at all 5 incisions were closed using 4-0 Monocryl sutures. Skin glue was then applied. DISPOSITION: Stable to recovery room
[2022-10-23] MEDS: ACETAMINOPHEN IV (For NPO) 1,000 MG in EMPTY BAG 1 BAG IVPB SCH ×2 (17:13→23:37)
[2022-10-23] MEDS: PANTOPRAZOLE 40 MG/10 ML VIAL IV SCH (17:13)
[2022-10-23] MEDS: ALBUTEROL NEBULIZED 2.5 MG/3 ML INHALATION SCH ×2 (20:35→20:41)
[2022-10-23] MEDS: FAMOTIDINE 20 MG TAB PO SCH (20:59)
[2022-10-23] MEDS: 0.9% NACL WITH KCL 20 MEQ/L 1,000 ML IV SCH (21:00)
[2022-10-23] MEDS ORDERED: fentaNYL PCA 500 MCG/50 ML BAG IV PRN (22:27)
[2022-10-23] MEDS: GABAPENTIN 300 MG CAP PO SCH (22:56)
[2022-10-23] MEDS: SIMETHICONE 40 MG/0.6 ML DROPS 2,000 MG/30 ML BOTTLE PO SCH (23:35)
[2022-10-24] MEDS: 0.9% NACL WITH KCL 20 MEQ/L 1,000 ML IV SCH ×4 (00:34→20:45)
[2022-10-24] MEDS: ENOXAPARIN 40 MG/0.4 ML SYRINGE SQ SCH ×3 (02:38→22:50)
[2022-10-24] MEDS: ACETAMINOPHEN IV (For NPO) 1,000 MG in EMPTY BAG 1 BAG IVPB SCH ×3 (05:27→17:47)
[2022-10-24] MEDS: LACTATED RINGERS 1,000 ML IV SCH (05:28)
[2022-10-24] MEDS: ALBUTEROL NEBULIZED 2.5 MG/3 ML INHALATION SCH ×4 (07:40→21:45)
[2022-10-24] MEDS: PANTOPRAZOLE 40 MG/10 ML VIAL IV SCH (08:36)
[2022-10-24] MEDS: SIMETHICONE 40 MG/0.6 ML DROPS 2,000 MG/30 ML BOTTLE PO SCH ×4 (08:37→22:58)
[2022-10-24] MEDS: GABAPENTIN 300 MG CAP PO SCH ×3 (10:43→22:51)
[2022-10-24] MEDS: FAMOTIDINE 20 MG TAB PO SCH (10:43)
[2022-10-24 11:17] LABS: Basophils # (A) 0.02 X 10*3/uL (0.00-0.10); Basophils % (A) 0.2 %; Eosinophils % (A) 1.1 %; HCT 33.9 % (37.2-46.3); HGB 10.8 g/dL (12.0-15.0); Immature Grans, Automated 0.6 %; Lymphocytes % (A) 14.6 %; MCH 26.9 pg (27.0-32.0); MCHC 31.9 g/dL (32.0-37.0); MCV 84.5 fL (80.0-97.0); Mean Platelet Volume 12.6 fL (9.5-12.2); Monocytes # (A) 0.66 X 10*3/uL (0.20-1.00); Monocytes % (A) 7.4 %; NRBC Per 100 WBC 0 /100 WBCS (0.0-0.0); Neutrophils % (A) 76.1 %; Platelet Count 160 X 10*3/uL (140-440); RBC 4.01 X 10*6/uL (4.10-5.20); WBC 8.93 X 10*3/uL (4.50-10.00)
[2022-10-24 11:27] LABS: African American GFR (CKD) 96.2 (60.0-200.0); Anion Gap 11.9 mmol/L (10.00-18.00); Blood Urea Nitrogen 7.3 mg/dL (9.0-27.0); Calcium 8.8 mg/dL (8.7-10.3); Carbon Dioxide 23.1 mmol/L (20.0-27.5); Magnesium 1.7 mg/dL (1.5-2.4); Phosphorus 3.7 mg/dL (2.4-5.1); Potassium 4.6 mmol/L (3.5-5.5)
[2022-10-24 11:34] VITALS: BMI 39.9
[2022-10-24] MEDS ORDERED: ALBUTEROL HFA INHALER INHALATION PRN (12:24)
[2022-10-24] MEDS ORDERED: diphenhydrAMINE 25 MG CAP PO PRN (12:24)
--- NOTE | 2022-10-24 12:45 | FL ---
SINGLE CONTRAST UPPER GI EXAMINATION: CLINICAL HISTORY: 57-year-old female postop bariatric surgery, sleeve gastrectomy yesterday. TECHNIQUE: Single contrast exam performed with 50 ml Isovue-370 contrast. Total fluoroscopy time: 1 minute 19 seconds. Total images: 22. FINDINGS: The patient swallowed oral contrast without difficulty or delay. Esophageal peristalsis and motility are within normal limits. There is prompt passage of contrast from the esophagus into the stomach. T here are postsurgical change of sleeve gastrectomy demonstrated with subsequent prompt passage across the patient's gastric sleeve into the distal stomach. With additional swallows, some intermittent ga stroesophageal reflux is encountered. Eventual passage of contrast into the duodenum. There is no alex dence of contrast extravasation to suggest leak. No postsurgical free air seen. IMPRESSION: No evidence for leak or obstruction status post sleeve gastrectomy. Incidentally, we did visualize in termittent episodes of gastroesophageal reflux.
--- NOTE | 2022-10-24 12:59 | P.PN ---
Subjective Progress Note Date: 10/24/22 Reports moderate abdominal pain. Upper GI negative for leak and independently reviewed. Nonnarcotic pain management including scheduled Tylenol, simethicone, fentanyl [employer] prescribed. Continue hospitalization due to postop pain management. Start bariatric clears. Objective - Vital Signs Vital signs: Vital Signs Temp 97.5 F L 10/24/22 08:00 Pulse 70 10/24/22 12:18 Resp 18 10/24/22 08:00 BP 180/81 10/24/22 08:00 Pulse Ox 94 L 10/24/22 08:00 FiO2 Intake & Output 10/23/22 10/24/22 10/24/22 18:59 06:59 18:59 Intake Total 1350 Output Total 20 Balance 1330 Weight 112.2 kg 112.2 kg Intake: IV 1350 Output: Estimated Blood Loss 20 Other: # Voids 3 - Labs CBC & Chem 7: 10/24/22 07:21 10/24/22 07:21 Labs: Abnormal Lab Results - Last 24 Hours (Table) 10/24/22 10/24/22 Range/Units 07:21 07:21 RBC 4.01 L (4.10-5.20) X 10*6/uL Hgb 10.8 L (12.0-15.0) g/dL Hct 33.9 L (37.2-46.3) % MCH 26.9 L (27.0-32.0) pg MCHC 31.9 L (32.0-37.0) g/dL MPV 12.6 H (9.5-12.2) fL Immature Gran # 0.05 H (0.00-0.04) X 10*3/uL Sodium 134 L (135-145) mmol/L BUN 7.3 L (9.0-27.0) mg/dL
[2022-10-24] MEDS: SYMBICORT 80-4.5 MCG INHALER INHALATION SCH ×2 (16:37→21:45)
[2022-10-24] MEDS: OXYBUTYNIN CHLORIDE 5 MG TAB PO SCH ×2 (17:47→22:51)
--- NOTE | 2022-10-24 18:25 | CONS ---
CONSULTATION REASON FOR CONSULTATION: Advice regarding COPD and seizure disorder, and multiple medical issues, requested by Dr. Bashir. HISTORY OF PRESENT ILLNESS: This 57-year-old woman with a past medical history of COPD, seizure disorder, multiple other medical problems, underwent gastric sleeve gastrectomy laparoscopically by Dr. Bashir. The patient tolerated the procedure well. There is no history of any fever, rigors, or chills at this time. PAST MEDICAL HISTORY: Reviewed and include COPD, seizure disorder. The rest of the history and chart is reviewed. HOME MEDICATIONS: Reviewed and include Benadryl, dose and rest of the medications reviewed. ALLERGIES: Reviewed and include adhesive tape. FAMILY HISTORY: History of atrial fibrillation, diabetes, and dialysis. SOCIAL HISTORY: Previous history of smoking and no history of alcohol intake. REVIEW OF SYSTEMS: A 14-point review of systems is negative as mentioned earlier. PHYSICAL EXAMINATION: VITAL SIGNS: Pulse is 82, blood pressure is 180/81, respirations 18. HEENT: Conjunctivae normal. NECK: No JVD. CARDIOVASCULAR: S1, S2. RESPIRATION: : Breath sounds diminished at the bases. A few scattered rhonchi. No crackles. ABDOMEN: Soft, status post surgery. LEGS: No edema. NERVOUS SYSTEM: Nonfocal. LABORATORY DATA: WBC 8.53, hemoglobin 10.8. ASSESSMENT: 1. Status post laparoscopic sleeve gastrectomy. 2. Chronic obstructive pulmonary disease. 3. Seizure disorder. 4. Sleep apnea. 5. Multiple medical issues. 6. RECOMMENDATIONS: I recommend to continue current medications and symptomatic treatment. DVT prophylaxis. Otherwise, resume the home medications. Diet per surgery. We will follow the patient closely with you. Incentive spirometry. Proton pump inhibitors. Further recommendations to follow. MMODL / IJN: [id number] /
[2022-10-24] MEDS ORDERED: LURASIDONE 20 MG TAB PO SCH (21:00)
[2022-10-24] MEDS: MECLIZINE 25 MG TAB PO SCH (22:51)
[2022-10-24] MEDS: OXcarbazepine 300 MG TAB PO SCH (22:52)
[2022-10-25] MEDS: ACETAMINOPHEN IV (For NPO) 1,000 MG in EMPTY BAG 1 BAG IVPB SCH ×3 (00:03→12:51)
[2022-10-25] MEDS: 0.9% NACL WITH KCL 20 MEQ/L 1,000 ML IV SCH ×2 (05:22→09:36)
--- NOTE | 2022-10-25 06:11 | CONS ---
CONSULTATION Cardiology Consultation CHIEF COMPLAINT: Cardiac arrhythmia. Cori is a 57-year-old lady with history of morbid obesity and COPD, who underwent gastric sleeve surgery for morbid obesity electively and I was consulted because of cardiac arrhythmia. Her pulse is irregular secondary to sinus rhythm with sinus arrhythmia and PACs. She is not in atrial fibrillation. She does not have chest pain or difficulty in breathing. There is no prior cardiac history. MEDICATIONS: At home included: 1. Ditropan. 2. Zestril. 3. Inhalers. 4. Aspirin. 5. Omeprazole. 6. Trileptal. 7. Antivert. 8. Cymbalta. 9. Benadryl. ALLERGIES: The patient is allergic to Xanax, Dilaudid, codeine, Motrin, and morphine. FAMILY HISTORY: Negative for premature coronary artery disease. SOCIAL HISTORY: Negative for current smoking, EtOH abuse, or drug abuse. REVIEW OF SYSTEMS: review of systems has been performed. Pertinent as documented. PHYSICAL EXAMINATION: GENERAL: Comfortable at rest. VITAL SIGNS: Stable. O2 saturation is 94% on room air. NECK: There is no jugular venous distention. Carotid upstroke is normal. There is no bruit. CHEST: Reveals good air entry bilaterally. HEART: Reveals first and second heart sounds. No gallop. ABDOMEN: Status post surgery. EXTREMITIES: Did not reveal any edema. LABORATORY DATA: Showed hemoglobin of 10.8, platelet count is 160. Potassium is 4.6 creatinine is 0.8. ASSESSMENT: 1. Morbid obesity, status post gastric sleeve surgery. 2. Cardiac arrhythmia. PLAN: Patient is doing well. Does not require any other evaluation at this time. We will obtain a 2D echo on her as an outpatient if necessary. MMODL / IJN: [id number] /
[2022-10-25] MEDS: LACTATED RINGERS 1,000 ML IV SCH (06:50)
[2022-10-25] MEDS: SYMBICORT 80-4.5 MCG INHALER INHALATION SCH (07:14)
[2022-10-25] MEDS: ALBUTEROL NEBULIZED 2.5 MG/3 ML INHALATION SCH ×3 (07:14→15:33)
[2022-10-25] MEDS ORDERED: bisacodyL 5 MG TABLET.DR PO PRN (08:00)
[2022-10-25] MEDS: GABAPENTIN 300 MG CAP PO SCH ×2 (08:07→16:41)
[2022-10-25] MEDS: OXYBUTYNIN CHLORIDE 5 MG TAB PO SCH ×2 (08:08→16:41)
[2022-10-25] MEDS: MECLIZINE 25 MG TAB PO SCH (08:08)
[2022-10-25] MEDS: OXcarbazepine 300 MG TAB PO SCH (08:09)
[2022-10-25] MEDS: ENOXAPARIN 40 MG/0.4 ML SYRINGE SQ SCH (08:09)
[2022-10-25] MEDS: PANTOPRAZOLE 40 MG/10 ML VIAL IV SCH (08:09)
[2022-10-25] MEDS: SIMETHICONE 40 MG/0.6 ML DROPS 2,000 MG/30 ML BOTTLE PO SCH ×2 (08:09→12:52)
[2022-10-25] MEDS ORDERED: DULoxetine HCL 60 MG CAPSULE.DR PO SCH (09:00)
[2022-10-25] MEDS ORDERED: FAMOTIDINE 20 MG TAB PO SCH (09:00)
[2022-10-25 10:16] VITALS: RESP 16
[2022-10-25 10:30] LABS: Basophils # (A) 0.03 X 10*3/uL (0.00-0.10); Basophils % (A) 0.4 %; Eosinophils # (A) 0.31 X 10*3/uL (0.04-0.35); Eosinophils % (A) 4.3 %; HCT 37.8 % (37.2-46.3); HGB 11.7 g/dL (12.0-15.0); Immature Grans, Automated 0.4 %; Lymphocytes # (A) 1.57 X 10*3/uL (0.90-5.00); Lymphocytes % (A) 21.7 %; MCH 26.7 pg (27.0-32.0); MCV 86.1 fL (80.0-97.0); Mean Platelet Volume 12.1 fL (9.5-12.2); Monocytes % (A) 8.3 %; NRBC Per 100 WBC 0 /100 WBCS (0.0-0.0); Neutrophils # (A) 4.71 X 10*3/uL (1.80-7.70); Neutrophils % (A) 64.9 %; Platelet Count 169 X 10*3/uL (140-440); RBC 4.39 X 10*6/uL (4.10-5.20); WBC 7.25 X 10*3/uL (4.50-10.00)
[2022-10-25 12:23] VITALS: BP 142/75; PULSE 83; TEMP 97.8
--- NOTE | 2022-10-25 13:54 | P.DS ---
Providers Date of admission: 10/23/22 11:37 Expected date of discharge: 10/25/22 Attending physician: Shahriar Bashir Consults: 10/23/22 15:55 Consult Physician Routine Consulting Provider: Alfreda Tidwell Consult Reason/Comments: Medical management Do you want consulting provider notified?: Yes 10/24/22 09:26 Consult Physician Routine Consulting Provider: Pranay Maxwell Consult Reason/Comments: Irregular Heart Beat Do you want consulting provider notified?: Yes Primary care physician: [facility] Course: Patient underwent sleeve gastrectomy for morbid obesity. Cardiology was following for questionable arrhythmia however patient deemed stable and clear for discharge. Pain management improved with nonnarcotic measures of Gas-X, Tylenol, Toradol. Patient clinically improved and was stable for discharge. Outpatient follow-up with cardiology and primary care provider in bariatric center reviewed. Plan - Discharge Summary Discharge Rx Participant: No New Discharge Prescriptions: New bisacodyL [Dulcolax] 5 mg PO DAILY PRN #10 tab PRN Reason: Constipation Omeprazole [PriLOSEC] 40 mg PO DAILY #90 cap Acetaminophen Tab [Tylenol Tab] 1,000 mg PO Q6HR PRN #30 tablet PRN Reason: Pain Simethicone 40 mg/0.6 ml Drops [Mylicon Drops] 40 mg PO PCHS PRN #30 ml PRN Reason: Gas Ondansetron Odt [Zofran Odt] 4 mg PO Q8HR PRN #9 tab PRN Reason: Nausea Continue Albuterol Inhaler [Ventolin Hfa Inhaler] 2 puff INHALATION RT-QID PRN PRN Reason: Dyspnea diphenhydrAMINE [Benadryl] 25 mg PO BID PRN PRN Reason: Allergy Symptoms Oxybutynin Chloride [Ditropan] 5 mg PO TID Lurasidone HCl [Latuda] 60 mg PO HS OXcarbazepine [Trileptal] 600 mg PO BID buPROPion HCL [Wellbutrin SR] 150 mg PO BID Fluticasone/Vilanterol [Breo Ellipta 100-25 Mcg Inhaler] 1 puff INHALATION RT-DAILY Omeprazole [PriLOSEC] 20 mg PO AC-BRKFST #90 cap Meclizine [Antivert] 25 mg PO BID PRN PRN Reason: Vertigo lisinopriL [Zestril] 2.5 mg PO DAILY DULoxetine HCL [Cymbalta] 30 mg PO DAILY Famotidine 40 mg PO DAILY Aspirin [Adult Low Dose Aspirin EC] 81 mg PO DAILY Discontinued Ergocalciferol [Vitamin D2 (1250 Mcg = 66337 Iu)] 1 tab PO WEEKLY Discharge Medication List Albuterol Inhaler [Ventolin Hfa Inhaler] 2 puff INHALATION RT-QID PRN 05/08/20 [History] Lurasidone HCl [Latuda] 60 mg PO HS 05/08/20 [History] OXcarbazepine [Trileptal] 600 mg PO BID 05/08/20 [History] Oxybutynin Chloride [Ditropan] 5 mg PO TID 05/08/20 [History] diphenhydrAMINE [Benadryl] 25 mg PO BID PRN 05/08/20 [History] Fluticasone/Vilanterol [Breo Ellipta 100-25 Mcg Inhaler] 1 puff INHALATION RT- DAILY 06/27/20 [History] buPROPion HCL [Wellbutrin SR] 150 mg PO BID 06/27/20 [History] Omeprazole [PriLOSEC] 20 mg PO AC-BRKFST #90 cap 08/06/20 [Rx] Aspirin [Adult Low Dose Aspirin EC] 81 mg PO DAILY 10/19/22 [History] Famotidine 40 mg PO DAILY 10/19/22 [History] Meclizine [Antivert] 25 mg PO BID PRN 10/19/22 [History] Omeprazole [PriLOSEC] 40 mg PO DAILY #90 cap 10/23/22 [Rx] Ondansetron Odt [Zofran Odt] 4 mg PO Q8HR PRN #9 tab 10/23/22 [Rx] Simethicone 40 mg/0.6 ml Drops [Mylicon Drops] 40 mg PO PCHS PRN #30 ml 10/23/22 [Rx] bisacodyL [Dulcolax] 5 mg PO DAILY PRN #10 tab 10/23/22 [Rx] DULoxetine HCL [Cymbalta] 30 mg PO DAILY 10/24/22 [History] lisinopriL [Zestril] 2.5 mg PO DAILY 10/24/22 [History] Acetaminophen Tab [Tylenol Tab] 1,000 mg PO Q6HR PRN #30 tablet 10/25/22 [Rx] Follow up Appointment(s)/Referral(s): [facility],[place] [NON-STAFF] - 1 Week Patient Instructions/Handouts: Nutrition after Bariatric Surgery (DC), Laparoscopic Sleeve Gastrectomy ([facility]), *Surgery [facility] - Managing Your Pain After Surgery Without Opioids Discharge Disposition: HOME SELF-CARE
--- NOTE | 2022-10-25 14:31 | P.PN ---
Subjective Progress Note Date: 10/25/22 Patient seen today resting comfortably in the bedside chair. She denies increased chest pain or shortness of breath. She has not any signs of acute distress. She remains sinus rhythm with sinus arrhythmia and frequent PACs on the monitor. We will obtain a 2-D echocardiogram. If patient is to be disch arged home tomorrow prior to echo being completed will complete echo as an outpatient Objective - Vital Signs Vital signs: Vital Signs Temp 97.8 F 10/25/22 08:00 Pulse 74 10/25/22 12:14 Resp 16 10/25/22 08:05 BP 142/75 10/25/22 08:00 Pulse Ox 93 L 10/25/22 08:00 FiO2 Intake & Output 10/24/22 10/25/22 10/25/22 18:59 06:59 18:59 Weight 112.2 kg Other: Voiding Method Toilet Toilet # Voids 5 2 - Exam PHYSICAL EXAM: VITAL SIGNS: Reviewed. GENERAL: Well-developed in no acute distress. HEENT: Head is normocephalic. Pupils are equal, round. Sclerae anicteric. Mucous membranes of the mouth are moist. NECK: Supple. No JVD or thyromegaly RESPIRATORY: Respirations even and unlabored. Lungs diminished to auscultation bilaterally. CARDIO: Regular rate and rhythm. S1 and S2 heard. No murmur or gallops. EXTREMITIES: Normal range of motion. No clubbing or cyanosis. Peripheral pulses intact. Negative for bilateral lower extremity edema NEURO: Orientated to person, time, mood is appropriate - Labs CBC & Chem 7: 10/25/22 07:50 10/24/22 07:21 Labs: Abnormal Lab Results - Last 24 Hours (Table) 10/25/22 Range/Units 07:50 Hgb 11.7 L (12.0-15.0) g/dL MCH 26.7 L (27.0-32.0) pg MCHC 31.0 L (32.0-37.0) g/dL Assessment and Plan Assessment: Morbid obesity status post gastric sleeve surgery Cardiac arrhythmia Plan: Will obtain a 2-D echocardiogram, if patient is to be discharged Will obtain an outpatient. Further recommendations based on clinical course The above impression and plan of care have been discussed and directed by the signing physician. Tanya Stephens, nurse practitioner, acting as scribe for signing physician.
--- NOTE | 2022-10-26 01:14 | PN ---
PROGRESS NOTE DATE OF SERVICE: 10/25/2022 SUBJECTIVE: This 57-year-old woman who was admitted after laparoscopic sleeve gastrectomy is closely monitored. No chest pain. No palpitations. No fever. OBJECTIVE: VITAL SIGNS: Pulse is 83, blood pressure 142/70, respirations 17. CHEST: Clear to auscultation. ABDOMEN: Soft. Status post surgery. NERVOUS SYSTEM: Nonfocal. LABORATORY DATA: Reviewed. ASSESSMENT: 1. Status post laparoscopic sleeve gastrectomy. 2. Chronic obstructive pulmonary disease. 3. Seizure disorder. 4. Sleep apnea. 5. Multiple medical issues. RECOMMENDATIONS: I recommend to continue current medications, incentive spirometry. DVT prophylaxis. Closely follow with Surgery. Further recommendations to follow. MMODL / IJN: [id number] /
== END 2022-10-25 17:16 | disposition home or self-care (01) | DRG 621 ==
LOC: 2ORMAIN 11:37 → 4SSUR 16:52
PROVIDERS: ADMIT Surgery; ATTEND Surgery
PROC: 8E0W4CZ Robotic Assisted Procedure of Trunk Region, Percutaneous Endoscopic Approach (ICD-10-PCS; 2022-10-23)
PROC: 0DJ08ZZ Inspection of Upper Intestinal Tract, Via Natural or Artificial Opening Endoscopic (ICD-10-PCS; 2022-10-23)
PROC: 0DB64Z3 Excision of Stomach, Percutaneous Endoscopic Approach, Vertical (ICD-10-PCS; principal; 2022-10-23 12:50)
DX: E66.01 Morbid (severe) obesity due to excess calories (principal); Z68.39 Body mass index [BMI] 39.0-39.9, adult; G47.33 Obstructive sleep apnea (adult) (pediatric); J44.9 Chronic obstructive pulmonary disease, unspecified; F17.210 Nicotine dependence, cigarettes, uncomplicated; K21.00 Gastro-esophageal reflux disease with esophagitis, without bleeding; G40.909 Epilepsy, unspecified, not intractable, without status epilepticus; I10 Essential (primary) hypertension; I49.9 Cardiac arrhythmia, unspecified; K29.70 Gastritis, unspecified, without bleeding; K20.90 Esophagitis, unspecified without bleeding; Z79.82 Long term (current) use of aspirin; Z79.899 Other long term (current) drug therapy; Z90.710 Acquired absence of both cervix and uterus; Z88.6 Allergy status to analgesic agent; Z88.5 Allergy status to narcotic agent; Z91.048 Other nonmedicinal substance allergy status; Z90.49 Acquired absence of other specified parts of digestive tract
CPT/HCPCS: 74240; 80051; 82310; 82565; 83735; 84100; 84520; 85025; 88307; 93005; 94640; 94760

== ENCOUNTER → 2022-10-27 | Outpatient (CLI) | payer MEDICARE, OTHER ==
[2022-10-27 14:23] VITALS: BP 144/72; PULSE 84; RESP 16; TEMP 98; BMI 39.1
--- NOTE | 2022-10-27 15:45 | P.BASOAP ---
Subjective Progress Note Date: 10/27/22 Principal diagnosis: morbid obesity patient returns for recheck. Underwent sleeve gastrectomy last Wednesday. No significant pain and what she is getting up out of bed. Patient says that she has not been drinking as much as she should be. She says prior to surgery she only drank carbonated beverages and has trouble drinking water or other bland liquids. No nausea. No heartburn. Objective - Vital Signs Vital signs: Vital Signs Temp 98 F 10/27/22 14:19 Pulse 84 10/27/22 14:19 Resp 16 10/27/22 14:19 BP 144/72 10/27/22 14:19 Pulse Ox FiO2 Intake & Output 10/26/22 10/27/22 10/27/22 18:59 06:59 18:59 Weight 111.584 kg - Exam Abdomen: Soft, nontender, nondistended, incisions clean and dry Assessment/Plan (1) Morbid obesity Narrative/Plan: patient doing fairly well. She probably is only ingesting about 30 ounces of liquids daily however. Patient will try a variety of other liquids to see what is agreeable to her. Begin protein supplementation later this week. Continue antiacids. Recheck one week. Plan: Date: 10/27/22 Initial Weight: 113.398 kg Initial BMI: 39.7 Current Weight: 111.584 kg Current BMI: 39.1 Type of Surgery: Vertical Sleeve Gastrectomy Total Volume in Band: Previous Volume: Volume Removed: Volume Added: Band Size:
== END ==
LOC: BARWHC3 14:09
PROVIDERS: ATTEND Surgery
DX: Z71.3 Dietary counseling and surveillance (principal); E66.01 Morbid (severe) obesity due to excess calories; Z68.39 Body mass index [BMI] 39.0-39.9, adult; Z91.048 Other nonmedicinal substance allergy status; Z88.5 Allergy status to narcotic agent; Z88.6 Allergy status to analgesic agent; F17.200 Nicotine dependence, unspecified, uncomplicated
CPT/HCPCS: 97802; G0463; 99211

== ENCOUNTER → 2022-11-03 | Outpatient (CLI) | payer MEDICARE, OTHER ==
[2022-11-03 12:48] VITALS: BP 147/79; PULSE 78; RESP 16; BMI 37.8
[2022-11-03 12:51] VITALS: TEMP 97.4
--- NOTE | 2022-11-03 12:54 | P.BASOAP ---
Subjective Progress Note Date: 11/03/22 Principal diagnosis: Morbid obesity Patient returns for recheck. Doing well since last week. Unfortunately she still was not tracking her protein and liquid intake. No pain. No heartburn. She is having some loose stools that she is attributing to her sugar-free sweeteners. Objective - Vital Signs Vital signs: Vital Signs Temp 97.4 F L 11/03/22 12:46 Pulse 78 11/03/22 12:46 Resp 16 11/03/22 12:46 BP 147/79 11/03/22 12:46 Pulse Ox FiO2 Intake & Output 11/02/22 11/03/22 11/03/22 18:59 06:59 18:59 Weight 107.955 kg - Exam Abdomen: Soft, nontender, nondistended, incisions clean and dry Assessment/Plan (1) Morbid obesity Narrative/Plan: Continue appropriate postop diet. Encourage patient to do a better job keeping track of protein liquid intake. Recheck 2-3 weeks. Plan: Date: 11/03/22 Initial Weight: 113.398 kg Initial BMI: 39.7 Current Weight: 107.955 kg Current BMI: 37.8 Type of Surgery: Vertical Sleeve Gastrectomy Total Volume in Band: Previous Volume: Volume Removed: Volume Added: Band Size:
== END ==
LOC: BARWHC3 12:38
PROVIDERS: ATTEND Surgery
DX: E66.01 Morbid (severe) obesity due to excess calories (principal); Z68.37 Body mass index [BMI] 37.0-37.9, adult; Z91.048 Other nonmedicinal substance allergy status; Z88.8 Allergy status to other drugs, medicaments and biological substances; Z88.6 Allergy status to analgesic agent; Z88.5 Allergy status to narcotic agent; F17.200 Nicotine dependence, unspecified, uncomplicated
CPT/HCPCS: 99211

== ENCOUNTER → 2022-11-17 | Outpatient (CLI) | payer MEDICARE, OTHER ==
[2022-11-17 12:40] VITALS: BP 119/82; PULSE 91; RESP 16; BMI 36.3
--- NOTE | 2022-11-17 12:56 | P.BASOAP ---
Subjective Progress Note Date: 11/17/22 Principal diagnosis: Morbid obesity Patient returns for reevaluation. Underwent sleeve gastrectomy 10/23. Doing better since her last visit. Liquid intake has improved. She is doing well with her protein intake as well. She had 2-3 episodes of regurgitation. Once was after eating ham and the other time after scramble eggs. No pain. No heartburn. 9 pound weight loss. Objective - Vital Signs Vital signs: Vital Signs Temp Pulse 91 11/17/22 12:32 Resp 16 11/17/22 12:32 BP 119/82 11/17/22 12:32 Pulse Ox FiO2 Intake & Output 11/16/22 11/17/22 11/17/22 18:59 06:59 18:59 Weight 103.873 kg - Exam Abdomen: Soft, nontender, nondistended Assessment/Plan (1) Morbid obesity Narrative/Plan: Patient doing well postoperative. Continue increasing diet and exercise at this time. Check one month labs. Recheck one month. Plan: Date: 11/17/22 Initial Weight: 113.398 kg Initial BMI: 39.7 Current Weight: 103.873 kg Current BMI: 36.3 Type of Surgery: Vertical Sleeve Gastrectomy Total Volume in Band: Previous Volume: Volume Removed: Volume Added: Band Size:
== END ==
LOC: BARWHC3 11:43
PROVIDERS: ATTEND Surgery
DX: E66.01 Morbid (severe) obesity due to excess calories (principal); Z68.36 Body mass index [BMI] 36.0-36.9, adult; F17.200 Nicotine dependence, unspecified, uncomplicated; Z91.048 Other nonmedicinal substance allergy status; Z88.5 Allergy status to narcotic agent; Z88.2 Allergy status to sulfonamides; Z88.6 Allergy status to analgesic agent
CPT/HCPCS: 97803; G0463; 99211

== ENCOUNTER → 2022-11-30 | Outpatient (CLI) | payer MEDICARE, OTHER ==
[2022-11-30 19:11] LABS: HCT 42.3 % (37.2-46.3); HGB 13.2 g/dL (12.0-15.0); MCH 26.7 pg (27.0-32.0); MCHC 31.2 g/dL (32.0-37.0); MCV 85.5 fL (80.0-97.0); Mean Platelet Volume 12.9 fL (9.5-12.2); NRBC Per 100 WBC 0 /100 WBCS (0.0-0.0); Platelet Count 204 X 10*3/uL (140-440); RBC 4.95 X 10*6/uL (4.10-5.20); RDW 13.8 % (11.5-14.5); WBC 7.44 X 10*3/uL (4.50-10.00)
[2022-11-30 19:17] LABS: African American GFR (CKD) 81.7 (60.0-200.0); Albumin 4.6 g/dL (3.8-4.9); Albumin/Globulin Ratio 2.49 (1.60-3.17); Anion Gap 11.8 mmol/L (10.00-18.00); BUN/Creat Ratio 14.52 Ratio (12.00-20.00); Blood Urea Nitrogen 13.3 mg/dL (9.0-27.0); Calcium 9.8 mg/dL (8.7-10.3); Carbon Dioxide 25.8 mmol/L (20.0-27.5); Globulin 1.8 g/dL (1.6-3.3); Non-African American GFR(CKD) 70.5 (60.0-200.0); Total Bilirubin 0.3 mg/dL (0.30-1.20); Total Protein 6.4 g/dL (6.2-8.2)
== END | disposition home or self-care (01) ==
LOC: LABWHC1 10:47
PROVIDERS: ATTEND Surgery
DX: E66.01 Morbid (severe) obesity due to excess calories (principal); K90.89 Other intestinal malabsorption; E55.9 Vitamin D deficiency, unspecified
CPT/HCPCS: 36415; 80053; 82306; 82607; 82746; 83540; 84425; 85027

== ENCOUNTER → 2023-02-16 | Outpatient (CLI) | payer MEDICARE, OTHER ==
[2023-02-16 13:03] VITALS: BP 124/85; PULSE 72; RESP 16; TEMP 98.5; BMI 34.6
--- NOTE | 2023-02-16 16:43 | P.BASOAP ---
Subjective Progress Note Date: 02/16/23 Principal diagnosis: Morbid obesity Patient returns for recheck. She was last seen on 214. Admits that she is not doing well with her protein intake. She is no longer drinking protein shakes because it makes her feel nauseous. Her oral intake has been light. Her weight has not changed it to 18. Denies nausea or vomiting. No GERD. She has not started any exercise routine yet. She is due for three-month lab work. Objective - Vital Signs Vital signs: Vital Signs Temp 98.5 F 02/16/23 12:59 Pulse 72 02/16/23 12:59 Resp 16 02/16/23 12:59 BP 124/85 02/16/23 12:59 Pulse Ox FiO2 Intake & Output 02/15/23 02/16/23 02/16/23 18:59 06:59 18:59 Weight 98.883 kg - Exam Abdomen: Soft, nontender, nondistended Assessment/Plan (1) Morbid obesity Narrative/Plan: Patient doing fairly well after recent sleeve gastrectomy. We'll check 3 months labs at this time. Patient met with dietary today. She will increase her protein intake. [facility] Follow-up 4-6 weeks. Plan: Date: 02/16/23 Initial Weight: 113.398 kg Initial BMI: 39.7 Current Weight: 98.883 kg Current BMI: 34.6 Type of Surgery: Total Volume in Band: Previous Volume: Volume Removed: Volume Added: Band Size:
[2023-02-16 22:33] LABS: HCT 42.4 % (37.2-46.3); HGB 13.1 g/dL (12.0-15.0); MCH 26.5 pg (27.0-32.0); MCHC 30.9 g/dL (32.0-37.0); MCV 85.8 fL (80.0-97.0); Mean Platelet Volume 12.5 fL (9.5-12.2); NRBC Per 100 WBC 0 /100 WBCS (0.0-0.0); Platelet Count 183 X 10*3/uL (140-440); RBC 4.94 X 10*6/uL (4.10-5.20); RDW 14.5 % (11.5-14.5); WBC 8.76 X 10*3/uL (4.50-10.00)
[2023-02-17 00:54] LABS: African American GFR (CKD) 88.4 (60.0-200.0); Albumin 4.6 g/dL (3.8-4.9); Albumin/Globulin Ratio 2.47 (1.60-3.17); Anion Gap 9.9 mmol/L (10.00-18.00); BUN/Creat Ratio 15.03 Ratio (12.00-20.00); Blood Urea Nitrogen 12.9 mg/dL (9.0-27.0); Calcium 9.8 mg/dL (8.7-10.3); Carbon Dioxide 29.4 mmol/L (20.0-27.5); Globulin 1.9 g/dL (1.6-3.3); Non-African American GFR(CKD) 76.3 (60.0-200.0); Potassium 4.7 mmol/L (3.5-5.5); Total Bilirubin 0.4 mg/dL (0.30-1.20); Total Protein 6.5 g/dL (6.2-8.2)
== END ==
LOC: BARWHC3 12:35
PROVIDERS: ATTEND Surgery
DX: E66.01 Morbid (severe) obesity due to excess calories (principal); Z71.3 Dietary counseling and surveillance; Z68.34 Body mass index [BMI] 34.0-34.9, adult; Z91.048 Other nonmedicinal substance allergy status; Z88.5 Allergy status to narcotic agent; Z88.6 Allergy status to analgesic agent; Z88.2 Allergy status to sulfonamides; F17.200 Nicotine dependence, unspecified, uncomplicated
CPT/HCPCS: 84425; 80053; 82607; 82746; 83540; 85027; 82306; 97803; G0463; 99211

== ENCOUNTER → 2023-06-01 | Outpatient (CLI) | payer MEDICARE, OTHER ==
[2023-06-01 15:36] VITALS: BP 132/57; PULSE 53; TEMP 97.7; BMI 33.8
--- NOTE | 2023-06-01 17:03 | P.BASOAP ---
Subjective Progress Note Date: 06/01/23 Principal diagnosis: Morbid obesity Patient returns for recheck. Says she hasn't really started exercising much although she did go yesterday. Protein and liquid intake remains somewhat poor. She is going to try a new protein powder. Denies pain. No vomiting. Remains on daily antiacids. Objective - Vital Signs Vital signs: Vital Signs Temp 97.7 F 06/01/23 15:34 Pulse 53 L 06/01/23 15:34 Resp BP 132/57 06/01/23 15:34 Pulse Ox FiO2 Intake & Output 05/31/23 06/01/23 06/01/23 18:59 06:59 18:59 Weight 96.615 kg - Exam Abdomen: Soft, nontender, nondistended Assessment/Plan (1) Morbid obesity Narrative/Plan: 58-year-old female with morbid obesity. Made about the same. Patient is not terribly compliant with dietary and exercise recommendations. Continue antiacid therapy. Check 6 month labs. Follow-up 2 months.. Plan: Date: 06/01/23 Initial Weight: 113.398 kg Initial BMI: 39.7 Current Weight: 96.615 kg Current BMI: 33.8 Type of Surgery: Total Volume in Band: Previous Volume: Volume Removed: Volume Added: Band Size:
== END ==
LOC: BARWHC3 14:43
PROVIDERS: ATTEND Surgery
DX: E66.01 Morbid (severe) obesity due to excess calories (principal); Z71.3 Dietary counseling and surveillance; Z68.33 Body mass index [BMI] 33.0-33.9, adult; Z91.048 Other nonmedicinal substance allergy status; Z88.5 Allergy status to narcotic agent; Z88.6 Allergy status to analgesic agent; Z88.8 Allergy status to other drugs, medicaments and biological substances; F17.200 Nicotine dependence, unspecified, uncomplicated
CPT/HCPCS: 97803; 99211

== ENCOUNTER → 2023-06-01 | Outpatient (CLI) | payer MEDICARE, OTHER ==
[2023-06-01 21:17] LABS: ALT 26 U/L (8-44); AST 18 U/L (13-35); Albumin 4.5 d/dL (3.8-4.9); Albumin/Globulin Ratio 2.37 Ratio (1.60-3.17); Alkaline Phosphatase 188 U/L (41-126); BUN/Creat Ratio 11.44 Ratio (12.00-20.00); Blood Urea Nitrogen 10.3 mg/dL (9.0-27.0); Calcium 9.7 mg/dL (8.7-10.3); Carbon Dioxide 24.8 mmol/L (21.6-31.8); Chloride 101 mmol/L (96-109); Globulin 1.9 d/dL (1.6-3.3); Glucose 100 mg/dL (70-110); Iron 86 UG/DL (50-170); Potassium 4.9 mmol/L (3.5-5.5); Sodium 138 mmol/L (135-145); Total Bilirubin 0.2 mg/dL (0.3-1.2); Total Protein 6.4 d/dL (6.2-8.2)
[2023-06-02 01:29] LABS: HCT 42.1 % (37.2-46.3); MCHC 30.9 d/dL (32.0-37.0); MCV 87.3 FL (80.0-97.0); Mean Platelet Volume 12.5 FL (9.5-12.2); NRBC Per 100 WBC 0 X 10*3/uL (0.00-0.01); Platelet Count 220 X 10*3/uL (140-440); RBC 4.82 X 10*6/uL (4.10-5.20); RDW 13.5 % (11.5-14.5); WBC 9.92 X 10*3/uL (4.50-10.00)
== END | disposition home or self-care (01) ==
LOC: LABWHC1 15:37
PROVIDERS: ATTEND Surgery
DX: E66.01 Morbid (severe) obesity due to excess calories (principal); K90.89 Other intestinal malabsorption; E55.9 Vitamin D deficiency, unspecified
CPT/HCPCS: 36415; 80053; 82306; 82607; 82746; 83540; 84425; 85027

== ENCOUNTER → 2023-09-14 | Outpatient (CLI) | payer MEDICARE, OTHER ==
[2023-09-14 13:59] VITALS: BP 131/93; PULSE 86; RESP 16; TEMP 97.6; BMI 34.2
--- NOTE | 2023-09-14 14:11 | P.BASOAP ---
Subjective Progress Note Date: 09/14/23 Principal diagnosis: Morbid obesity Patient returns for recheck. Last seen in May. She has gained 2 pounds since then. Apparently she has not gone back to exercise at the gym since her last visit. States she plans to soon. No GERD. Still taking antacids daily. Last visit she had her 6 month labs which all looked good. Has noticed some hair loss. Objective - Vital Signs Vital signs: Vital Signs Temp 97.6 F 09/14/23 13:53 Pulse 86 09/14/23 13:53 Resp 16 09/14/23 13:53 BP 131/93 09/14/23 13:53 Pulse Ox FiO2 Intake & Output 09/13/23 09/14/23 09/14/23 18:59 06:59 18:59 Weight 97.522 kg - Exam Abdomen: Soft, nontender, nondistended Assessment/Plan (1) Morbid obesity Narrative/Plan: Patient doing well today. Continue dietary regimen. Increase activity and exercise level. Will start taking antiacids every other day. Follow-up 2 months. Plan: Date: 09/14/23 Initial Weight: 113.398 kg Initial BMI: 39.7 Current Weight: 97.522 kg Current BMI: 34.2 Type of Surgery: Vertical Sleeve Gastrectomy Total Volume in Band: Previous Volume: Volume Removed: Volume Added: Band Size:
== END ==
LOC: BARWHC3 13:45
PROVIDERS: ATTEND Surgery
DX: E66.01 Morbid (severe) obesity due to excess calories (principal); F17.200 Nicotine dependence, unspecified, uncomplicated; Z71.3 Dietary counseling and surveillance; Z68.34 Body mass index [BMI] 34.0-34.9, adult; Z91.048 Other nonmedicinal substance allergy status; Z88.8 Allergy status to other drugs, medicaments and biological substances; Z88.5 Allergy status to narcotic agent; Z88.6 Allergy status to analgesic agent
CPT/HCPCS: 99211

== ENCOUNTER → 2023-11-02 | Outpatient (CLI) | payer MEDICARE, OTHER ==
[2023-11-02 13:36] VITALS: BP 124/58; PULSE 76; RESP 16; TEMP 98.1; BMI 34.9
--- NOTE | 2023-11-02 15:11 | P.BASOAP ---
Subjective Progress Note Date: 11/02/23 Principal diagnosis: Morbid obesity Patient returns for recheck. Underwent sleeve gastrectomy is last October. Last seen in August. Still not exercising much. No GERD symptoms. Still taking antacids daily. Hair loss has stabilized. She has gained 5 pounds since her last visit. She is due for one year labs. Objective - Vital Signs Vital signs: Vital Signs Temp 98.1 F 11/02/23 13:15 Pulse 76 11/02/23 13:15 Resp 16 11/02/23 13:15 BP 124/58 11/02/23 13:15 Pulse Ox FiO2 Intake & Output 11/01/23 11/02/23 11/02/23 18:59 06:59 18:59 Weight 99.79 kg - Exam Abdomen: Soft, nontender, nondistended Assessment/Plan (1) Morbid obesity Narrative/Plan: Patient doing well at this time. I'll start taking antacids every other day. Increase exercise routine. Follow-up 3 months. Plan: Date: 11/02/23 Initial Weight: 113.398 kg Initial BMI: 39.7 Current Weight: 99.79 kg Current BMI: 34.9 Type of Surgery: Vertical Sleeve Gastrectomy Total Volume in Band: Previous Volume: Volume Removed: Volume Added: Band Size:
[2023-11-02 18:29] LABS: HCT 38.7 % (37.2-46.3); HGB 12.3 g/dL (12.0-15.0); MCH 27.2 pg (27.0-32.0); MCHC 31.8 g/dL (32.0-37.0); MCV 85.6 FL (80.0-97.0); Mean Platelet Volume 11.9 FL (9.5-12.2); NRBC Per 100 WBC 0 X 10*3/uL (0.00-0.01); Platelet Count 212 X 10*3/uL (140-440); RBC 4.52 X 10*6/uL (4.10-5.20); RDW 13.6 % (11.5-14.5); WBC 7.72 X 10*3/uL (4.50-10.00)
[2023-11-02 18:46] LABS: ALT 27 U/L (8-44); AST 23 U/L (13-35); Albumin 4.6 g/dL (3.8-4.9); Albumin/Globulin Ratio 2.42 Ratio (1.60-3.17); Alkaline Phosphatase 182 U/L (41-126); Blood Urea Nitrogen 8.4 mg/dL (9.0-27.0); Carbon Dioxide 26.3 mmol/L (21.6-31.8); Chloride 100 mmol/L (96-109); Globulin 1.9 g/dL (1.6-3.3); Glucose 94 mg/dL (70-110); Iron 44 UG/DL (50-170); Potassium 5.1 mmol/L (3.5-5.5); Sodium 138 mmol/L (135-145); Total Bilirubin 0.2 mg/dL (0.3-1.2); Total Protein 6.5 g/dL (6.2-8.2)
== END ==
LOC: BARWHC3 13:00
PROVIDERS: ATTEND Surgery
DX: E66.01 Morbid (severe) obesity due to excess calories (principal); F17.200 Nicotine dependence, unspecified, uncomplicated; Z88.5 Allergy status to narcotic agent; Z88.3 Allergy status to other anti-infective agents; Z88.6 Allergy status to analgesic agent; Z68.34 Body mass index [BMI] 34.0-34.9, adult
CPT/HCPCS: 36415; 80053; 82306; 82607; 82746; 83540; 84425; 85027; 97803; 99211

== ENCOUNTER 2024-02-22 10:01 | Day surgery (SDC) | payer MEDICARE, OTHER ==
[2024-02-22] MEDS: LACTATED RINGERS 1,000 ML IV SCH (10:41)
[2024-02-22 11:23] VITALS: TEMP 99.1
[2024-02-22] MEDS ORDERED: PROPOFOL 10 MG/ML 20 ML VIAL IV ONE (11:24)
--- NOTE | 2024-02-22 11:29 | P.GSHP ---
History of Present Illness H&P Date: 02/22/24 Chief Complaint: Colon polyp 58-year-old female here for colonoscopy. Last colonoscopy 3 years ago. Patient had a colon polyp at the time at the hepatic flexure. Prep was suboptimal. Here for repeat colonoscopy. No bowel complaints. 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, hardening of left ventricle History of Any Multi-Drug Resistant Organisms: None Reported Past Surgical History: Bariatric Surgery, Section, Cholecystectomy, Hysterectomy Additional Past Surgical History / Comment(s): D&C sleeve gastrectomy 10-23-22 Past Anesthesia/Blood Transfusion Reactions: Postoperative Nausea & Vomiting (PONV) Additional Past Anesthesia/Blood Transfusion Reaction / Comment(s): states had PONV with epidural for C-sec Smoking Status: Former smoker - Past Family History Father Family Medical History: AFIB, Diabetes Mellitus Mother Family Medical History: CVA/TIA, Diabetes Mellitus, Renal Disease Additional Family Medical History / Comment(s): dialysis Medications and Allergies Home Medications Medication Instructions Recorded Confirmed Type Lurasidone [Latuda] 60 mg PO HS 05/08/20 02/22/24 History OXcarbazepine [Trileptal] 600 mg PO BID 05/08/20 02/22/24 History diphenhydrAMINE [Benadryl] 25 mg PO BID PRN 05/08/20 02/22/24 History oxyBUTYnin chloride [Ditropan] 5 mg PO TID 05/08/20 02/22/24 History Fluticasone/Vilanterol [Breo 1 puff INHALATION RT-DAILY 06/27/20 02/22/24 History Ellipta 100-25 Mcg Inhaler] buPROPion HCL [Wellbutrin SR] 150 mg PO BID 06/27/20 02/22/24 History Aspirin [Adult Low Dose Aspirin EC] 81 mg PO DAILY 10/19/22 02/18/24 History Famotidine 40 mg PO DAILY 10/19/22 02/22/24 History Meclizine [Antivert] 25 mg PO BID PRN 10/19/22 02/22/24 History DULoxetine HCL [Cymbalta] 30 mg PO DAILY 10/24/22 02/22/24 History lisinopriL [Zestril] 2.5 mg PO DAILY 10/24/22 02/22/24 History Acetaminophen Tab [Tylenol Tab] 1,000 mg PO Q6HR PRN #30 tablet 10/25/22 02/22/24 Rx Symbicort(Unk) 1 puff INHALATION DIRECTED 02/18/24 02/22/24 History Allergies Allergy/AdvReac Type Severity Reaction Status Date / Time adhesive tape Allergy "welts" Verified 02/18/24 09:35 alprazolam [From Xanax] Allergy crying Verified 02/18/24 09:35 codeine Allergy migraines Verified 02/18/24 09:35 hydromorphone [From Dilaudid] Allergy dropped b/p Verified 02/18/24 09:35 ibuprofen [From Motrin] Allergy Rash/Hives Verified 02/18/24 09:35 morphine Allergy Itching Verified 02/18/24 09:35 Surgical - Exam Vital Signs Temp Pulse Resp BP Pulse Ox 99.1 F 75 18 141/63 95 02/22/24 10:43 02/22/24 10:43 02/22/24 10:43 02/22/24 10:43 02/22/24 10:43 Physical exam: General: Well-developed, well-nourished HEENT: Normocephalic, sclerae nonicteric Abdomen: Nontender, nondistended Extremities: No edema Neuro: Alert and oriented Assessment and Plan (1) Colon polyp Narrative/Plan: Will proceed with colonoscopy at this time. Current Visit: Yes Status: Acute Code(s): K63.5 - POLYP OF COLON SNOMED Code(s): 67102276
--- NOTE | 2024-02-22 11:40 | P.PCN ---
Date of Procedure: 02/22/24 Procedure(s) Performed: PREOPERATIVE DIAGNOSIS: History of colon polyp POSTOPERATIVE DIAGNOSIS: Diverticulosis PROCEDURE: Colonoscopy ANESTHESIA: MAC SURGEON: Shahriar Bashir M.D. SPECIMENS: None ENDOSCOPIC PROCEDURE: The patient was placed on the endoscopy table in the left decubitus position. The Olympus colonoscope was inserted into the anus and passed under direct visualization to the base of the cecum. The appendiceal orifice was visualized. From that point the scope was slowly withdrawn inspe cting all surfaces carefully. There were no neoplastic inflammatory or polypoid lesions throughout the cecum, ascending, transverse, descending, sigmoid and rectum. There was mild left-sided diverticulosis noted. Digital rectal examination was normal. The patient was taken to the recovery room in stable condition per anesthesia guidelines. RECOMMENDATIONS: Resume diet. Repeat colonoscopy 5 years.
[2024-02-22 12:07] VITALS: BP 111/51; PULSE 69; RESP 16
== END 2024-02-22 12:38 | disposition home or self-care (01) ==
LOC: ORWHC2ENDO 10:01
PROVIDERS: ATTEND Surgery
DX: K63.5 Polyp of colon (principal); K57.30 Diverticulosis of large intestine without perforation or abscess without bleeding; G40.909 Epilepsy, unspecified, not intractable, without status epilepticus; J44.9 Chronic obstructive pulmonary disease, unspecified; Z79.51 Long term (current) use of inhaled steroids; Z87.891 Personal history of nicotine dependence; Z88.5 Allergy status to narcotic agent; Z88.6 Allergy status to analgesic agent; Z90.49 Acquired absence of other specified parts of digestive tract; Z79.82 Long term (current) use of aspirin; Z79.899 Other long term (current) drug therapy
CPT/HCPCS: 45378; J2704

== ENCOUNTER 2025-02-08 20:22 | Emergency (ER) | payer MEDICARE, OTHER ==
--- NOTE | 2025-02-08 21:32 | ED ---
URI HPI - General Chief Complaint: Upper Respiratory Infection Stated Complaint: Difficulty Breathing Time Seen by Provider: 02/08/25 20:37 Source: patient, EMS, RN notes reviewed Mode of arrival: EMS Limitations: no limitations - History of Present Illness Initial Comments: This is a 59-year-old female with history of COPD presenting for dyspnea since this morning. Patient states she is having trouble breathing and mid chest pain radiating to her upper chest. States pain is intermittent, described as stabbing (7/10) with associated chills, fatigue and sweating. Patient states she had a positive at-home COVID test earlier today as well. Endorses symptoms starting with tension headache (5/10) yesterday and dry cough. Endorses use of ibuprofen and Delsym with minimal relief. Denies fever, dizziness, hemoptysis, abdominal pain, N/V/D. MD Complaint: cough Onset/Timin -: days(s) - Related Data Home Medications Medication Instructions Recorded Confirmed Lurasidone [Latuda] 60 mg PO HS 05/08/20 02/22/24 OXcarbazepine [Trileptal] 600 mg PO BID 05/08/20 02/22/24 diphenhydrAMINE [Benadryl] 25 mg PO BID PRN 05/08/20 02/22/24 oxyBUTYnin chloride [Ditropan] 5 mg PO TID 05/08/20 02/22/24 Fluticasone/Vilanterol [Breo 1 puff INHALATION RT-DAILY 06/27/20 02/22/24 Ellipta 100-25 Mcg Inhaler] buPROPion HCL [Wellbutrin SR] 150 mg PO BID 06/27/20 02/22/24 Aspirin [Adult Low Dose Aspirin EC] 81 mg PO DAILY 10/19/22 02/18/24 Famotidine 40 mg PO DAILY 10/19/22 02/22/24 Meclizine [Antivert] 25 mg PO BID PRN 10/19/22 02/22/24 DULoxetine HCL [Cymbalta] 30 mg PO DAILY 10/24/22 02/22/24 lisinopriL [Zestril] 2.5 mg PO DAILY 10/24/22 02/22/24 Symbicort(Unk) 1 puff INHALATION DIRECTED 02/18/24 02/22/24 Previous Rx's Medication Instructions Recorded Acetaminophen Tab [Tylenol Tab] 1,000 mg PO Q6HR PRN #30 tablet 10/25/22 predniSONE 50 mg PO DAILY #5 tab 02/08/25 Allergies Allergy/AdvReac Type Severity Reaction Status Date / Time adhesive tape Allergy "welts" Verified 02/08/25 20:39 alprazolam [From Xanax] Allergy crying Verified 02/08/25 20:39 codeine Allergy migraines Verified 02/08/25 20:39 hydromorphone [From Dilaudid] Allergy dropped b/p Verified 02/08/25 20:39 ibuprofen [From Motrin] Allergy Rash/Hives Verified 02/08/25 20:39 morphine Allergy Itching Verified 02/08/25 20:39 Review of Systems ROS Statement: Those systems with pertinent positive or pertinent negative responses have been documented in the HPI. ROS Other: All systems not noted in ROS Statement are negative. 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, hardening of left ventricle History of Any Multi-Drug Resistant Organisms: None Reported Past Surgical History: Bariatric Surgery, Section, Cholecystectomy, Hysterectomy Additional Past Surgical History / Comment(s): D&C sleeve gastrectomy 10-23-22 Past Anesthesia/Blood Transfusion Reactions: Previous Problems w/ Anesthesia Additional Past Anesthesia/Blood Transfusion Reaction / Comment(s): states had PONV with epidural for C-sec Past Psychological History: Anxiety, Depression Smoking Status: Current every day smoker, Vaper Past Drug Use History: None Reported - Past Family History Father Family Medical History: AFIB, Diabetes Mellitus Mother Family Medical History: CVA/TIA, Diabetes Mellitus, Renal Disease Additional Family Medical History / Comment(s): dialysis General Exam Limitations: no limitations General appearance: alert, in no apparent distress Head exam: Present: atraumatic, normocephalic, normal inspection Eye exam: Present: normal appearance, PERRL, EOMI. Absent: scleral icterus, conjunctival injection, periorbital swelling ENT exam: Present: normal exam, mucous membranes moist Neck exam: Present: normal inspection. Absent: tenderness, meningismus, lymphadenopathy Respiratory exam: Present: decreased breath sounds. Absent: respiratory distress, wheezes, rales, rhonchi, stridor, chest wall tenderness, accessory muscle use, prolonged expiratory Cardiovascular Exam: Present: regular rate, normal rhythm, normal heart sounds. Absent: systolic murmur, diastolic murmur, rubs, gallop, clicks GI/Abdominal exam: Present: soft, normal bowel sounds. Absent: distended, tenderness, guarding, rebound, rigid Extremities exam: Present: normal inspection, full ROM, normal capillary refill. Absent: tenderness, pedal edema, joint swelling, calf tenderness Back exam: Present: normal inspection Neurological exam: Present: alert, oriented X3, CN II-XII intact Psychiatric exam: Present: normal affect, normal mood Skin exam: Present: warm, dry, intact, normal color. Absent: rash Course Vital Signs 02/08/25 02/08/25 20:34 22:11 Temperature 99.3 F 98.7 F Pulse Rate 98 74 Respiratory 22 20 Rate Blood Pressure 126/80 134/77 O2 Sat by Pulse 98 96 Oximetry Medical Decision Making - Medical Decision Making Was pt. sent in by a medical professional or institution (Dr. PA, ORTHOPEDICALLY IMPAIRED TEACHER, urgent care, hospital, or [facility]...) When possible be specific @ -[No] Did you speak to anyone other than the patient for history (EMS, parent, family, police, friend...)? What history was obtained from this source @ -[No] Did you review nursing and triage notes (agree or disagree)? Why? @ -[I reviewed and agree with nursing and triage notes] Were old charts reviewed (outside hosp., previous admission, EMS record, old EKG, old radiological studies, urgent care reports/EKG's, [facility] records)? Report findings @ -[No old charts were reviewed] Differential Diagnosis (chest pain, altered mental status, abdominal pain women, abdominal pain men, vaginal bleeding, weakness, fever, dyspnea, syncope, heada bijan, dizziness, GI bleed, back pain, seizure, CVA, palpatations, mental health, musculoskeletal)? @ -Differential Dyspnea: Coronary syndrome, arrhythmia, tamponade, asthma, COPD, pulmonary embolism, pneumonia, pneumothorax, pulmonary effusion, anaphylaxis, diabetic ketoacidosis, flailed chest, pulmonary contusion, diaphragmatic rupture, anemia, neuromuscular, this is not meant to be an all-inclusive list. EKG interpreted by me (3pts min.). @ -[As above] X-rays interpreted by me (1pt min.). @ -[None done] CT interpreted by me (1pt min.). @ -[None done] U/S interpreted by me (1pt. min.). @ -[None done] What testing was considered but not performed or refused? (CT, X-rays, U/S, labs)? Why? @ -[None] What meds were considered but not given or refused? Why? @ -[None] Did you discuss the management of the patient with other professionals (professionals i.e. , PA, ORTHOPEDICALLY IMPAIRED TEACHER, lab, RT, psych nurse, dialysis social worker, business lawyer, teacher, commanding officer motorized squad, community case manager)? Give summary @ -[No] Was smoking cessation discussed for >3mins.? @ -[No] Was critical care preformed (if so, how long)? @ -[No] Were there social determinants of health that impacted care today? How? (Homelessness, low income, unemployed, alcoholism, drug addiction, transportation, low edu. Level, literacy, decrease access to med. care, prison, rehab)? @ -[No] Was there de-escalation of care discussed even if they declined (Discuss DNR or withdrawal of care, Hospice)? DNR status @ -[No] What co-morbidities impacted this encounter? (DM, HTN, Smoking, COPD, CAD, Cancer, CVA, ARF, Chemo, Hep., AIDS, mental health diagnosis, sleep apnea, morbid obesity)? @ -COPD Was patient admitted / discharged? Hospital course, mention meds given and route, prescriptions, significant lab abnormalities, going to OR and other pertinent info. @ -[hospital course] Undiagnosed new problem with uncertain prognosis? @ -[No] Drug Therapy requiring intensive monitoring for toxicity (Heparin, Nitro, Insulin, Cardizem)? @ -[No] Were any procedures done? @ -[No] Diagnosis/symptom? @ -[default] Acute, or Chronic, or Acute on Chronic? @ -Acute Uncomplicated (without systemic symptoms) or Complicated (systemic symptoms)? @ -Complicated Side effects of treatment? @ -[No] Exacerbation, Progression, or Severe Exacerbation? @ -[No] Poses a threat to life or bodily function? How? (Chest pain, USA, AR, pneumonia, PE, COPD, DKA, ARF, appy, cholecystitis, CVA, Diverticulitis, Homicidal, Suicidal, threat to staff... and all critical care pts) @ -[No] - Lab Data Result diagrams: 02/08/25 20:29 02/08/25 20:29 Lab Results 02/08/25 02/08/25 02/08/25 Range/Units 20:29 20: 20:29 WBC 9.0 (3.8-10.6) k/uL RBC 4.21 (3.80-5.40) m/uL Hgb 11.5 (11.4-16.0) gm/dL Hct 34.6 (34.0-46.0) % MCV 82.2 (80.0-100.0) fL MCH 27.3 (25.0-35.0) pg MCHC 33.2 (31.0-37.0) g/dL RDW 13.3 (11.5-15.5) % Plt Count 160 (150-450) k/uL MPV 10.5 Neutrophils % 82 % Lymphocytes % 9 % Monocytes % 7 % Eosinophils % 1 % Basophils % 0 % Neutrophils # 7.4 (1.3-7.7) k/uL Lymphocytes # 0.8 L (1.0-4.8) k/uL Monocytes # 0.6 (0-1.0) k/uL Eosinophils # 0.1 (0-0.7) k/uL Basophils # 0.0 (0-0.2) k/uL PT 11.1 (10.0-12.5) sec INR 1.0 (<1.2) APTT 23.2 (22.0-30.0) sec Sodium 132 L (137-145) mmol/L Potassium 4.0 (3.5-5.1) mmol/L Chloride 99 (98-107) mmol/L Carbon Dioxide 24 (22-30) mmol/L Anion Gap 9 mmol/L BUN 10 (7-17) mg/dL Creatinine 0.71 (0.52-1.04) mg/dL Est GFR (CKD-EPI)AfAm >90 (>60 ml/min/1.73 sqM) Est GFR (CKD-EPI)NonAf >90 (>60 ml/min/1.73 sqM) Glucose 105 H (74-99) mg/dL Plasma Lactic Acid Vikas (0.7-2.0) mmol/L Calcium 8.6 (8.4-10.2) mg/dL Magnesium 1.6 (1.6-2.3) mg/dL Total Bilirubin 0.6 (0.2-1.3) mg/dL AST 31 (14-36) U/L ALT 23 (4-34) U/L Alkaline Phosphatase 164 H (38-126) U/L Troponin I (0.000-0.034) ng/mL Total Protein 6.1 L (6.3-8.2) g/dL Albumin 4.0 (3.5-5.0) g/dL Influenza Type A (PCR) (Not Detectd) Influenza Type B (PCR) (Not Detectd) RSV (PCR) (Not Detectd) SARS-CoV-2 (PCR) (Not Detectd) 02/08/25 02/08/25 02/08/25 Range/Units 20:29 20:29 21:41 WBC (3.8-10.6) k/uL RBC (3.80-5.40) m/uL Hgb (11.4-16.0) gm/dL Hct (34.0-46.0) % MCV (80.0-100.0) fL MCH (25.0-35.0) pg MCHC (31.0-37.0) g/dL RDW (11.5-15.5) % Plt Count (150-450) k/uL MPV Neutrophils % % Lymphocytes % % Monocytes % % Eosinophils % % Basophils % % Neutrophils # (1.3-7.7) k/uL Lymphocytes # (1.0-4.8) k/uL Monocytes # (0-1.0) k/uL Eosinophils # (0-0.7) k/uL Basophils # (0-0.2) k/uL PT (10.0-12.5) sec INR (<1.2) APTT (22.0-30.0) sec Sodium (137-145) mmol/L Potassium (3.5-5.1) mmol/L Chloride (98-107) mmol/L Carbon Dioxide (22-30) mmol/L Anion Gap mmol/L BUN (7-17) mg/dL Creatinine (0.52-1.04) mg/dL Est GFR (CKD-EPI)AfAm (>60 ml/min/1.73 sqM) Est GFR (CKD-EPI)NonAf (>60 ml/min/1.73 sqM) Glucose (74-99) mg/dL Plasma Lactic Acid Vikas 2.0 (0.7-2.0) mmol/L Calcium (8.4-10.2) mg/dL Magnesium (1.6-2.3) mg/dL Total Bilirubin (0.2-1.3) mg/dL AST (14-36) U/L ALT (4-34) U/L Alkaline Phosphatase (38-126) U/L Troponin I <0.012 (0.000-0.034) ng/mL Total Protein (6.3-8.2) g/dL Albumin (3.5-5.0) g/dL Influenza Type A (PCR) Not Detected (Not Detectd) Influenza Type B (PCR) Not Detected (Not Detectd) RSV (PCR) Not Detected (Not Detectd) SARS-CoV-2 (PCR) Detected A (Not Detectd) Disposition Clinical Impression: COVID-19 Disposition: HOME SELF-CARE Condition: Good Instructions (If sedation given, give patient instructions): COVID-19 (Coronavirus Disease 2019) (ED) Additional Instructions: Follow-up with primary care tomorrow. Prescriptions: predniSONE 50 mg PO DAILY #5 tab Is patient prescribed a controlled substance at d/c from ED?: No Referrals: Reuben Wu MD [Primary Care Provider] - 1-2 days Time of Disposition: 23:22
--- NOTE | 2025-02-08 21:59 | XR ---
EXAMINATION TYPE: XR chest 2V DATE OF EXAM: 02/08/2025 9:47 PM COMPARISON: 08/19/2015 CLINICAL INDICATION: Female, 59 years old with history of Dyspnea, chest pain: Shortness of breath TECHNIQUE: XR chest 2V views of the chest are obtained. FINDINGS: Scattered senescent parenchymal changes noted. Hyperinflation compatible with COPD. No evidence for infiltrate. No evidence for atelectasis. Heart size is stable. Mediastinal structures are stable and grossly unremarkable. No evidence for hilar prominence. Degenerative changes dorsal spine. IMPRESSION: 1. No evidence for acute pulmonary disease. [facility], , 02/08/2025 9:56 PM
[2025-02-08] MEDS: DEXAMETHASONE SOD PHOSPHATE 4 MG/ML 1 ML VIAL IVP STA (22:06)
[2025-02-08] MEDS: SODIUM CHLORIDE 0.9% 1,000 ML IV STA (22:06)
[2025-02-08 22:11] LABS: Basophils % (A) 0 %; Eosinophils # (A) 0.1 k/uL (0-0.7); Eosinophils % (A) 1 %; HCT 34.6 % (34.0-46.0); HGB 11.5 gm/dL (11.4-16.0); Lymphocytes # (A) 0.8 k/uL (1.0-4.8); Lymphocytes % (A) 9 %; MCH 27.3 pg (25.0-35.0); MCHC 33.2 g/dL (31.0-37.0); MCV 82.2 fL (80.0-100.0); Mean Platelet Volume 10.5; Monocytes # (A) 0.6 k/uL (0-1.0); Monocytes % (A) 7 %; Neutrophils # (A) 7.4 k/uL (1.3-7.7); Neutrophils % (A) 82 %; Platelet Count 160 k/uL (150-450); RBC 4.21 m/uL (3.80-5.40); RDW 13.3 % (11.5-15.5)
[2025-02-08 22:24] LABS: ALT 23 U/L (4-34); AST 31 U/L (14-36); African American GFR (CKD) >90 (>60 ml/min/1.73 sqM); Alkaline Phosphatase 164 U/L (38-126); Anion Gap 9 mmol/L; Blood Urea Nitrogen 10 mg/dL (7-17); Calcium 8.6 mg/dL (8.4-10.2); Carbon Dioxide 24 mmol/L (22-30); Chloride 99 mmol/L (98-107); Glucose 105 mg/dL (74-99); Magnesium 1.6 mg/dL (1.6-2.3); Non-African American GFR(CKD) >90 (>60 ml/min/1.73 sqM); Sodium 132 mmol/L (137-145); Total Bilirubin 0.6 mg/dL (0.2-1.3); Total Protein 6.1 g/dL (6.3-8.2)
[2025-02-08 22:39] LABS: Partial Thromboplastin Time 23.2 sec (22.0-30.0); Prothrombin Time 11.1 sec (10.0-12.5)
[2025-02-08] MEDS: ACETAMINOPHEN TAB 500 MG TAB PO STA (22:45)
[2025-02-08 22:53] LABS: Influenza A Not Detected (Not Detectd); Influenza B Not Detected (Not Detectd); RSV Not Detected (Not Detectd)
[2025-02-09 00:28] VITALS: BP 134/76; PULSE 67; RESP 21; TEMP 98
== END 2025-02-09 00:42 | disposition home or self-care (01) ==
LOC: EC 20:22
DX: U07.1 COVID-19 (principal); F17.290 Nicotine dependence, other tobacco product, uncomplicated; Z88.6 Allergy status to analgesic agent; Z88.5 Allergy status to narcotic agent; Z88.8 Allergy status to other drugs, medicaments and biological substances
CPT/HCPCS: 36415; 93005; 80053; 83605; 83735; 84484; 85025; 85610; 85730; 87636; 71046; 99285; 96374; 96361; J1100

== ENCOUNTER → 2025-05-31 | Outpatient (CLI) | payer MEDICARE, OTHER ==
--- NOTE | 2025-06-01 07:38 | MM ---
Reason for Exam: Screening (asymptomatic). Last mammogram was performed 4 year(s) and 6 month(s) ago. Patient History: Menarche at age 13. First Full-Term at age 21. Left ovary removed at age 48. Right ovary removed at age 48. Hysterectomy at age 48. Postmenopausal. Maternal cousin had breast cancer. Risk Values: Chichi 5 year model risk: 1.1%. NCI Lifetime model risk: 6.1%. Prior Study Comparison: 04/09/2011 Bilateral Screening Mammogram, [facility]. 05/31/2013 Bilateral Screening Mammogram, [facility]. 11/25/2020 Bilateral Screening Mammogram, [facility]. Tissue Density: There are scattered areas of fibroglandular density. Findings: Analyzed By CAD. Benign-appearing bilateral axillary lymph nodes are redemonstrated. There is no suspicious group of microcalcifications or new suspicious mass in either breast. Overall Assessment: Negative, BI-RAD 1 Management: Screening Mammogram of both breasts in 1 year. . Patient should continue monthly self-breast exams. A clinical breast exam by your physician is recommended on an annual basis. This exam should not preclude additional follow-up of suspicious palpable abnormalities. Note on Chichi scores and lifetime risk: 1. A Chichi score greater than 3% is considered moderate risk. If this is the case, consider specialist referral to assess eligibility for a risk reducing agent. 2. If overall lifetime risk for the development of breast cancer is 20% or higher, the patient may qualify for future screening with alternating mammogram and breast MRI. [facility], , 06/01/2025 7:35 AM. Electronically signed and approved by: Reji Mcgee M.D.
== END | disposition home or self-care (01) ==
LOC: RADMAMWWP 15:47
PROVIDERS: ATTEND Family Medicine
DX: Z12.31 Encounter for screening mammogram for malignant neoplasm of breast (principal); R92.323 Mammographic fibroglandular density, bilateral breasts; Z78.0 Asymptomatic menopausal state; Z80.3 Family history of malignant neoplasm of breast
CPT/HCPCS: 77063; 77067